=== PATIENT | male | born 1975 | race Two or more races ===

== ENCOUNTER 2019-08-02 14:03 | Emergency (ER) | payer OTHER ==
[~2019-08-02] VITALS: Ht 154.9 cm; Wt 61.2 kg
[2019-08-02] MEDS ORDERED: SODIUM CHLORIDE 0.9% 1,000 ML IV ONE ×2 (14:05)
[2019-08-02 14:28] LABS: Basophils # (auto) 0.1 10 ^3/uL (0-0.2); Basophils % (auto) 1.2 % (0.0-2.0); Hematocrit 38.3 % (41.0-53.0); Hemoglobin 12.8 g/dL (13.5-17.5); Lymphocytes # (auto) 1.7 10 ^3/uL (0.4-5.4); Lymphocytes % (auto) 20.2 % (10.0-50.0); Mean Corpuscular Hemoglobin 27.9 pg (28.0-32.0); Mean Corpuscular Hgb Conc. 33.3 g/dL (32.0-36.0); Mean Corpuscular Volume 83.7 fL (80.0-100.0); Monocytes # (auto) 0.5 10 ^3/uL (0-1.3); Monocytes % (auto) 5.6 % (0.0-12.0); Nucleated Red Blood Cells % 0.1 %; Platelet Count (auto) 305 10^3/uL (140-450); Red Blood Cells 4.58 10^6/uL (4.5-5.90); Red Cell Distribution Width 13.9 % (11.8-14.3); White Blood Cell 8.2 10^3/uL (4.4-10.8)
[2019-08-02 14:46] LABS: Albumin 2.9 g/dL (3.4-5.0); Anion Gap 9 (5-15); Blood Urea Nitrogen 14 mg/dL (7-18); Calcium 8.8 mg/dL (8.5-10.1); Carbon Dioxide 26 mmol/L (21-32); Chloride 104 mmol/L (98-107); Glucose 195 mg/dL (74-106); Potassium 4.8 mmol/L (3.5-5.1); Sodium 139 mmol/L (136-145)
[2019-08-02 14:51] LABS: Alanine Aminotransferase 100 U/L (16-61); Alkaline Phosphatase 87 U/L (45-117); Aspartate Aminotransferase 62 U/L (15-37); BUN/Creatinine Ratio 13.3; Bilirubin, Total 0.2 mg/dL (0.2-1.0); GFR African American 98 mL/min; GFR Non-African American 81 mL/min; Total Protein 7.2 g/dL (6.4-8.2)
[2019-08-02] MEDS ORDERED: amLODIPine BESYLATE 5 MG TAB PO ONE (15:00)
[2019-08-02 15:51] VITALS: BP 164/96
== END 2019-08-02 16:04 | disposition home or self-care (01) ==
LOC: EEVIPCON 14:03 → ER 14:03
DX: E11.65 Type 2 diabetes mellitus with hyperglycemia (principal); E44.0 Moderate protein-calorie malnutrition; I10 Essential (primary) hypertension
CPT/HCPCS: 36415; 70450; 71045; 80053; 84484; 85025; 96360; 99285; J7030

== ENCOUNTER 2020-05-23 15:52 | Emergency (ER) | payer OTHER ==
[~2020-05-23] VITALS: Ht 157.5 cm; Wt 70.3 kg
[2020-05-23 17:37] LABS: Basophils # (auto) 0.1 10 ^3/uL (0-0.2); Basophils % (auto) 0.9 % (0.0-2.0); Eosinophils # (auto) 0.7 10 ^3/uL (0-0.8); Hematocrit 25.8 % (41.0-53.0); Hemoglobin 9.1 g/dL (13.5-17.5); Lymphocytes # (auto) 0.9 10 ^3/uL (0.4-5.4); Lymphocytes % (auto) 7.9 % (10.0-50.0); Mean Corpuscular Hemoglobin 28.3 pg (28.0-32.0); Mean Corpuscular Hgb Conc. 35.3 g/dL (32.0-36.0); Mean Corpuscular Volume 80.2 fL (80.0-100.0); Monocytes # (auto) 0.8 10 ^3/uL (0-1.3); Monocytes % (auto) 7.3 % (0.0-12.0); Neutrophils # (auto) 8.6 10 ^3/uL (1.6-8.6); Neutrophils % (auto) 77.9 % (37.0-80.0); Platelet Count (auto) 372 10^3/uL (140-450); Red Blood Cells 3.22 10^6/uL (4.5-5.90); Red Cell Distribution Width 13.3 % (11.8-14.3)
[2020-05-23 18:03] LABS: Albumin 2.5 g/dL (3.4-5.0); Calcium 8.1 mg/dL (8.5-10.1); Potassium 4.2 mmol/L (3.5-5.1)
[2020-05-23 18:07] LABS: BUN/Creatinine Ratio 22.3; Bilirubin, Total 0.3 mg/dL (0.2-1.0); Total Protein 6.1 g/dL (6.4-8.2)
[2020-05-23 22:37] VITALS: BP 158/89
== END 2020-05-23 23:05 ==
LOC: ER 15:52 → EEVIPCON 15:52 → ER 23:05
DX: R51.9 Headache, unspecified (principal); H57.11 Ocular pain, right eye; M54.2 Cervicalgia; E11.9 Type 2 diabetes mellitus without complications; I10 Essential (primary) hypertension
CPT/HCPCS: 36415; 70450; 80053; 85025

== ENCOUNTER 2020-05-26 19:20 | Inpatient (IN) | payer OTHER ==
[~2020-05-26] VITALS: Ht 157.5 cm; Wt 82.0 kg
[2020-05-26 21:59] LABS: Basophils # (auto) 0.1 10 ^3/uL (0-0.2); Basophils % (auto) 0.7 % (0.0-2.0); Eosinophils # (auto) 0.5 10 ^3/uL (0-0.8); Eosinophils % (auto) 5.3 % (0.0-7.0); Hematocrit 29.5 % (41.0-53.0); Hemoglobin 10.4 g/dL (13.5-17.5); Lymphocytes # (auto) 0.8 10 ^3/uL (0.4-5.4); Lymphocytes % (auto) 7.8 % (10.0-50.0); Mean Corpuscular Hemoglobin 28.4 pg (28.0-32.0); Mean Corpuscular Hgb Conc. 35.3 g/dL (32.0-36.0); Mean Corpuscular Volume 80.5 fL (80.0-100.0); Monocytes # (auto) 0.5 10 ^3/uL (0-1.3); Monocytes % (auto) 5.6 % (0.0-12.0); Neutrophils # (auto) 7.9 10 ^3/uL (1.6-8.6); Neutrophils % (auto) 80.6 % (37.0-80.0); Platelet Count (auto) 384 10^3/uL (140-450); Red Blood Cells 3.66 10^6/uL (4.5-5.90); Red Cell Distribution Width 13.5 % (11.8-14.3); White Blood Cell 9.8 10^3/uL (4.4-10.8)
[2020-05-26 22:19] LABS: Albumin 2.5 g/dL (3.4-5.0); Anion Gap 11 (5-15); Blood Urea Nitrogen 54 mg/dL (7-18); Calcium 8.3 mg/dL (8.5-10.1); Carbon Dioxide 19 mmol/L (21-32); Chloride 93 mmol/L (98-107); Glucose 112 mg/dL (74-106); Lipase 178 U/L (73-393); Magnesium 2.1 mg/dL (1.6-2.6); Potassium 4.8 mmol/L (3.5-5.1); Sodium 123 mmol/L (136-145)
[2020-05-26 22:58] LABS: Alanine Aminotransferase 34 U/L (16-61); Alkaline Phosphatase 107 U/L (45-117); Aspartate Aminotransferase 38 U/L (15-37); Bilirubin, Total 0.2 mg/dL (0.2-1.0); GFR African American 18 mL/min; GFR Non-African American 15 mL/min; Total Protein 6.6 g/dL (6.4-8.2)
[2020-05-26] MEDS ORDERED: HYDROcodone-ACET 10/325MG TAB PO PRN (23:00)
[2020-05-26] MEDS ORDERED: DEXTROSE (50%) 50ML SYRG IV PRN (23:00)
[2020-05-26] MEDS: cefTRIAXone 1GM/50ML D5W 50 ML IV SCH (23:00)
[2020-05-26] MEDS: D5W/SOD CHL 0.45% 1,000 ML IV SCH (23:00)
[2020-05-26] MEDS ORDERED: AZITHROMYCIN 500MG/ 250ML 250 ML IV ONE (23:00)
[2020-05-26 23:17] LABS: INR 0.91 (0.9-1.15); Partial Thromboplastin Time 31.5 sec (23.0-31.2)
[2020-05-26] MEDS: AZITHROMYCIN IV SCH (23:30)
[2020-05-26] MEDS ORDERED: AZITHROMYCIN 500MG/ 250ML 250 ML IV SCH (23:30)
[2020-05-26] MEDS: SODIUM CHL 0.9% IV SCH (23:30)
[2020-05-27] MEDS: ACCU-CHEK COMFORT CURVE STRIP VI SCH ×7 (00:26→23:35)
[2020-05-27] MEDS: InsuLIN REG 1unit/0.01ml Soln (100units/ml) SC SCH ×7 (03:31→23:35)
[2020-05-27] MEDS ORDERED: AZITHROMYCIN 500 MG/250 ML IV ONE (03:43)
[2020-05-27] MEDS ORDERED: AZITHROMYCIN 500MG/ 250ML 250 ML IV ONE (03:49)
[2020-05-27 04:26] VITALS: BP 151/76
[2020-05-27 05:15] VITALS: BP 151/76
[2020-05-27] MEDS: D5W/SOD CHL 0.45% 1,000 ML IV SCH ×3 (05:44→18:32)
[2020-05-27] MEDS ORDERED: LISI40TA11 PO (08:15)
[2020-05-27] MEDS ORDERED: ATOR20TA50 PO (08:15)
[2020-05-27] MEDS ORDERED: METF-370 PO (08:15)
[2020-05-27 08:57] VITALS: BP 155/83
[2020-05-27] MEDS: cefTRIAXone 1GM/50ML D5W 50 ML IV SCH (10:29)
[2020-05-27] MEDS: ENOXAPARIN SOD 30 MG/0.3 ML SYRINGE SC SCH (10:29)
[2020-05-27 12:39] VITALS: BP 155/85
[2020-05-27] MEDS: cloNIDine HCL 0.1 MG TAB PO PRN (15:32)
[2020-05-27 16:00] VITALS: BP 164/91
[2020-05-27 16:41] LABS: Urine Bacteria NONE SEEN /hpf (None Seen); Urine Blood 1+ /uL (Negative); Urine Specific Gravity 1.005 (1.001-1.035); Urine WBC <1 /hpf (0 - 3)
[2020-05-27] MEDS: AZITHROMYCIN IV SCH (21:54)
[2020-05-27] MEDS: SODIUM CHL 0.9% IV SCH (21:54)
[2020-05-27 22:00] VITALS: BP 145/86
[2020-05-28] MEDS: D5W/SOD CHL 0.45% 1,000 ML IV SCH ×3 (03:38→16:24)
[2020-05-28] MEDS: ACCU-CHEK COMFORT CURVE STRIP VI SCH ×6 (04:00→23:39)
[2020-05-28] MEDS: InsuLIN REG 1unit/0.01ml Soln (100units/ml) SC SCH ×6 (04:00→23:40)
[2020-05-28 05:00] VITALS: BP 171/95
[2020-05-28] MEDS: cloNIDine HCL 0.1 MG TAB PO PRN (05:17)
[2020-05-28 07:44] LABS: Albumin 2.1 g/dL (3.4-5.0); Calcium 7.9 mg/dL (8.5-10.1); Potassium 4.9 mmol/L (3.5-5.1)
[2020-05-28 07:49] LABS: BUN/Creatinine Ratio 11.7; Bilirubin, Total 0.2 mg/dL (0.2-1.0); Total Protein 5.5 g/dL (6.4-8.2)
[2020-05-28 09:00] VITALS: BP 114/74
[2020-05-28] MEDS: ENOXAPARIN SOD 30 MG/0.3 ML SYRINGE SC SCH (09:45)
[2020-05-28] MEDS: cefTRIAXone 1GM/50ML D5W 50 ML IV SCH (09:45)
[2020-05-28] MEDS: LOSARTAN POTASSIUM 50 MG TAB PO SCH (09:46)
[2020-05-28 13:00] VITALS: BP 149/88
[2020-05-28 22:00] VITALS: BP 146/75
[2020-05-28] MEDS: SODIUM CHL 0.9% IV SCH (22:02)
[2020-05-28] MEDS: AZITHROMYCIN IV SCH (22:02)
[2020-05-29] MEDS: InsuLIN REG 1unit/0.01ml Soln (100units/ml) SC SCH ×4 (04:00→16:00)
[2020-05-29] MEDS: ACCU-CHEK COMFORT CURVE STRIP VI SCH ×4 (04:02→16:29)
[2020-05-29 05:30] VITALS: BP 149/78
[2020-05-29 08:00] VITALS: BP 149/78
[2020-05-29] MEDS: ENOXAPARIN SOD 30 MG/0.3 ML SYRINGE SC SCH (10:04)
[2020-05-29] MEDS: cefTRIAXone 1GM/50ML D5W 50 ML IV SCH (10:04)
[2020-05-29] MEDS: LOSARTAN POTASSIUM 50 MG TAB PO SCH (10:05)
[2020-05-29 12:00] VITALS: BP 152/85
[2020-05-29] MEDS ORDERED: LEVO-28 PO (14:48)
[2020-05-29 15:09] VITALS: BP 152/85
== END 2020-05-29 16:30 | DRG 637 ==
LOC: ER 19:20 → EEVIPCON 19:20 → EDBD 19:20 → OVERFLOW 23:20 → EAST 05-27 04:50 → WEST WING 05-27 14:17
PROVIDERS: ADMIT Internal Medicine; ATTEND Internal Medicine
DX: E11.649 Type 2 diabetes mellitus with hypoglycemia without coma (principal); G93.41 Metabolic encephalopathy; J18.9 Pneumonia, unspecified organism; E87.1 Hypo-osmolality and hyponatremia; I10 Essential (primary) hypertension; E78.5 Hyperlipidemia, unspecified; Z83.3 Family history of diabetes mellitus; Z87.891 Personal history of nicotine dependence; Z20.822 Contact with and (suspected) exposure to COVID-19; N19 Unspecified kidney failure
CPT/HCPCS: 36415; 71045; 80053; 81001; 82962; 83690; 83735; 84484; 85025; 85610; 85730; 87040; 87070; 87077; 87081; 87186; 87205; 87426; 93005; G0378; J0696; J1815

== ENCOUNTER 2020-07-07 11:25 | Inpatient (IN) | payer OTHER ==
[~2020-07-07] VITALS: Ht 167.6 cm; Wt 57.0 kg
[~2020-07-07 11:25] MED LIST: ATOR20TA50 PO; LEVO-28 PO; LISI40TA11 PO
[2020-07-07] MEDS ORDERED: ZINC SULFATE 220mg CAP or TAB PO ONE (11:30)
[2020-07-07] MEDS ORDERED: AZITHROMYCIN 500MG/ 250ML 250 ML IV ONE (11:30)
[2020-07-07] MEDS ORDERED: CHOLECALCIFEROL (VITD3) 2,000 UNIT CAP/TAB PO ONE (11:30)
[2020-07-07] MEDS ORDERED: methylPREDNISolone SOD SUCC 125 MG/2 ML VL IV ONE (11:30)
[2020-07-07] MEDS ORDERED: ASCORBIC ACID 500 MG TAB PO ONE (11:30)
[2020-07-07 12:07] LABS: Basophils # (auto) 0.1 10 ^3/uL (0-0.2); Basophils % (auto) 0.9 % (0.0-2.0); Eosinophils # (auto) 0.6 10 ^3/uL (0-0.8); Eosinophils % (auto) 4.6 % (0.0-7.0); Hematocrit 26.7 % (41.0-53.0); Hemoglobin 9.3 g/dL (13.5-17.5); Lymphocytes # (auto) 0.7 10 ^3/uL (0.4-5.4); Lymphocytes % (auto) 5.1 % (10.0-50.0); Mean Corpuscular Hemoglobin 28.2 pg (28.0-32.0); Mean Corpuscular Hgb Conc. 34.8 g/dL (32.0-36.0); Monocytes % (auto) 7.7 % (0.0-12.0); Neutrophils # (auto) 10.7 10 ^3/uL (1.6-8.6); Neutrophils % (auto) 81.7 % (37.0-80.0); Red Cell Distribution Width 13.6 % (11.8-14.3); White Blood Cell 13.1 10^3/uL (4.4-10.8)
[2020-07-07 12:33] LABS: Anion Gap 7 (5-15); Blood Urea Nitrogen 32 mg/dL (7-18); Calcium 8.6 mg/dL (8.5-10.1); Carbon Dioxide 21 mmol/L (21-32); Chloride 95 mmol/L (98-107); Glucose 137 mg/dL (74-106); Potassium 5.1 mmol/L (3.5-5.1); Sodium 123 mmol/L (136-145)
[2020-07-07 12:47] LABS: Alanine Aminotransferase 44 U/L (16-61); Alkaline Phosphatase 119 U/L (45-117); Aspartate Aminotransferase 37 U/L (15-37); Bilirubin, Total 0.3 mg/dL (0.2-1.0); GFR African American 78 mL/min; GFR Non-African American 64 mL/min; Total Protein 6.5 g/dL (6.4-8.2)
[2020-07-07] MEDS ORDERED: ACETAMINOPHEN 325 MG TAB PO PRN (13:45)
[2020-07-07] MEDS ORDERED: HYDROcodone-ACET 10/325MG TAB PO PRN (13:45)
[2020-07-07] MEDS ORDERED: MORPHINE SULFATE INJECTION 2 MG/ML SYRG IV PRN (13:45)
[2020-07-07] MEDS ORDERED: NITROGLYCERIN 0.4 MG SL TAB SL PRN (13:45)
[2020-07-07] MEDS: SOD CHL 0.45% 1,000 ML IV SCH ×2 (14:18→23:24)
[2020-07-07 16:50] VITALS: BP 152/71
[2020-07-07] MEDS: metFORMIN HYDROCHLORIDE 500 MG TAB PO SCH (18:08)
[2020-07-07 22:00] VITALS: BP 141/83
[2020-07-07] MEDS: DexAMETHasone SOD PHOS 10MG/1ML VIAL INJ IV SCH (23:24)
[2020-07-07] MEDS: ATORVASTATIN 20 MG TAB PO SCH (23:25)
[2020-07-07] MEDS: glipiZIDE 5 MG TAB PO SCH (23:25)
[2020-07-07] MEDS: METOPROLOL TARTRATE 50 MG TAB PO SCH (23:26)
[2020-07-07] MEDS: ASCORBIC ACID 500 MG TAB PO SCH (23:26)
[2020-07-07] MEDS: ACCU-CHEK COMFORT CURVE STRIP VI SCH (23:27)
[2020-07-07] MEDS: LISINOPRIL 20 MG TAB PO SCH (23:27)
[2020-07-07] MEDS: InsuLIN REG 1unit/0.01ml Soln (100units/ml) SC SCH (23:29)
[2020-07-08 05:00] VITALS: BP 123/74
[2020-07-08] MEDS: metFORMIN HYDROCHLORIDE 500 MG TAB PO SCH ×2 (08:25→18:11)
[2020-07-08] MEDS: LEVOTHYROXINE SODIUM 25 MCG TAB PO SCH (08:25)
[2020-07-08 09:00] VITALS: BP 143/78
[2020-07-08] MEDS ORDERED: cefTRIAXone 1GM/50ML D5W 50 ML IV SCH (09:00)
[2020-07-08] MEDS: DexAMETHasone SOD PHOS 10MG/1ML VIAL INJ IV SCH ×2 (09:54→23:27)
[2020-07-08] MEDS: ZINC SULFATE 220mg CAP or TAB PO SCH (09:55)
[2020-07-08] MEDS: ASPirin 81 mg TAB PO SCH (09:55)
[2020-07-08] MEDS: METOPROLOL TARTRATE 50 MG TAB PO SCH ×2 (09:56→23:29)
[2020-07-08] MEDS: CHOLECALCIFEROL (VITD3) 2,000 UNIT CAP/TAB PO SCH (09:57)
[2020-07-08] MEDS: amLODIPine BESYLATE 5 MG TAB PO SCH (09:57)
[2020-07-08] MEDS: ASCORBIC ACID 500 MG TAB PO SCH ×2 (09:57→23:29)
[2020-07-08] MEDS: LISINOPRIL 20 MG TAB PO SCH ×2 (09:58→23:30)
[2020-07-08] MEDS: ENOXAPARIN SOD 40 MG/0.4 ML SYRINGE SC SCH (09:58)
[2020-07-08] MEDS: ACCU-CHEK COMFORT CURVE STRIP VI SCH ×2 (09:58→23:30)
[2020-07-08] MEDS ORDERED: AZITHROMYCIN 500MG/ 250ML 250 ML IV SCH (10:00)
[2020-07-08] MEDS: InsuLIN REG 1unit/0.01ml Soln (100units/ml) SC SCH ×2 (10:14→23:31)
[2020-07-08] MEDS: glipiZIDE 5 MG TAB PO SCH ×2 (10:14→23:27)
[2020-07-08] MEDS ORDERED: VANCOMYCIN PER PHARMACY 0 MG IV SCH (12:15)
[2020-07-08] MEDS ORDERED: VANCOMYCIN 1GM/250ML 250 ML IV ONE (12:38)
[2020-07-08 13:00] VITALS: BP 130/80
[2020-07-08 13:11] VITALS: BP 130/80
[2020-07-08 13:28] LABS: Basophils # (auto) 0 10 ^3/uL (0-0.2); Basophils % (auto) 0.1 % (0.0-2.0); Eosinophils # (auto) 0 10 ^3/uL (0-0.8); Hematocrit 23.9 % (41.0-53.0); Monocytes # (auto) 0.7 10 ^3/uL (0-1.3)
[2020-07-08 13:29] LABS: Hemoglobin 8.2 g/dL (13.5-17.5); Lymphocytes # (auto) 0.5 10 ^3/uL (0.4-5.4); Lymphocytes % (auto) 2.6 % (10.0-50.0); Mean Corpuscular Hgb Conc. 34.3 g/dL (32.0-36.0); Mean Corpuscular Volume 81.7 fL (80.0-100.0); Neutrophils # (auto) 17.4 10 ^3/uL (1.6-8.6); Neutrophils % (auto) 93.3 % (37.0-80.0); Red Blood Cells 2.92 10^6/uL (4.5-5.90); White Blood Cell 18.6 10^3/uL (4.4-10.8)
[2020-07-08 13:44] LABS: BUN/Creatinine Ratio 30.8; Calcium 8.5 mg/dL (8.5-10.1); Potassium 4.8 mmol/L (3.5-5.1)
[2020-07-08] MEDS: PIPERACILLIN-TAZOB 3.375GM 100 ML IV SCH ×2 (14:00→22:26)
[2020-07-08 17:00] VITALS: BP 129/73
[2020-07-08] MEDS: FUROSEMIDE 20 MG/2 ML VIAL IV SCH (18:12)
[2020-07-08 22:00] VITALS: BP 136/74
[2020-07-08] MEDS: POTASSIUM CHL 10 Meq TABLET PO SCH (23:28)
[2020-07-08] MEDS: ATORVASTATIN 20 MG TAB PO SCH (23:28)
[2020-07-09] VITALS (47 sets, daily range): BP systolic 87–153; BP diastolic 51–86
[2020-07-09] MEDS ORDERED: VANCOMYCIN 1GM/250ML 250 ML IV SCH (01:00)
[2020-07-09] MEDS: FUROSEMIDE 20 MG/2 ML VIAL IV SCH (05:54)
[2020-07-09] MEDS: PIPERACILLIN-TAZOB 3.375GM 100 ML IV SCH ×3 (05:54→21:48)
[2020-07-09 06:21] LABS: BUN/Creatinine Ratio 35.8; Calcium 8.7 mg/dL (8.5-10.1)
[2020-07-09] MEDS: metFORMIN HYDROCHLORIDE 500 MG TAB PO SCH ×2 (08:15→18:00)
[2020-07-09] MEDS: LEVOTHYROXINE SODIUM 25 MCG TAB PO SCH (08:15)
[2020-07-09] MEDS: ACCU-CHEK COMFORT CURVE STRIP VI SCH ×2 (10:00→21:49)
[2020-07-09] MEDS: InsuLIN REG 1unit/0.01ml Soln (100units/ml) SC SCH ×2 (10:00→21:50)
[2020-07-09] MEDS: ZINC SULFATE 220mg CAP or TAB PO SCH (10:38)
[2020-07-09] MEDS: POTASSIUM CHL 10 Meq TABLET PO SCH (10:38)
[2020-07-09] MEDS: ASPirin 81 mg TAB PO SCH (10:38)
[2020-07-09] MEDS: DexAMETHasone SOD PHOS 10MG/1ML VIAL INJ IV SCH ×2 (10:38→21:47)
[2020-07-09] MEDS: amLODIPine BESYLATE 5 MG TAB PO SCH (10:40)
[2020-07-09] MEDS: ASCORBIC ACID 500 MG TAB PO SCH ×2 (10:40→21:49)
[2020-07-09] MEDS: METOPROLOL TARTRATE 50 MG TAB PO SCH ×2 (10:40→21:48)
[2020-07-09] MEDS: CHOLECALCIFEROL (VITD3) 2,000 UNIT CAP/TAB PO SCH (10:41)
[2020-07-09] MEDS: LISINOPRIL 20 MG TAB PO SCH ×2 (10:41→21:49)
[2020-07-09] MEDS: ENOXAPARIN SOD 40 MG/0.4 ML SYRINGE SC SCH (10:42)
[2020-07-09] MEDS: glipiZIDE 5 MG TAB PO SCH ×2 (10:51→21:48)
[2020-07-09] MEDS ORDERED: FUROSEMIDE 20 MG/2 ML VIAL IV ONE (11:00)
[2020-07-09] MEDS ORDERED: SUCCINYLCHOLINE CHLORIDE 20 MG/ML 10ML VIAL IV ONE (12:46)
[2020-07-09] MEDS ORDERED: ROCURONIUM 10MG/ML 10ML VIAL IV ONE (12:46)
[2020-07-09] MEDS ORDERED: ETOMIDATE (2MG/ML) 20ML VIAL IV ONE (12:46)
[2020-07-09] MEDS ORDERED: fentaNYL Drip 2500mCg/250mlNS 250 ML IV ONE (12:51)
[2020-07-09] MEDS ORDERED: PROPOFOL 100 ML IV ONE (12:51)
[2020-07-09] MEDS ORDERED: MIDAZOLAM DRIP 50 mg/50mL 50 ML IV ONE (12:51)
[2020-07-09] MEDS: MIDAZOLAM DRIP 50 mg/50mL 50 ML IV SCH ×3 (13:15→20:38)
[2020-07-09] MEDS: PROPOFOL 100 ML IV SCH ×2 (13:15→20:38)
[2020-07-09] MEDS ORDERED: SODIUM CHLORIDE LOCK 0 ML ONE (14:12)
[2020-07-09] MEDS ORDERED: LIDOCAINE 2%HCL (LOCAL ANESTH.) INJ 20ML MDV ONE (14:12)
[2020-07-09] MEDS ORDERED: EPINEPHrine HCL 1 MG/1 ML AMP ONE (14:12)
[2020-07-09] MEDS ORDERED: MIDAZOLAM HCL 5 MG/ML-1ML VIAL ONE (14:13)
[2020-07-09] MEDS ORDERED: fentaNYL CITRATE 100 MCG/2 ML VL ONE (14:13)
[2020-07-09] MEDS ORDERED: LIDOCAINE HCL 2% TOP JELLY 5ML TOP ONE (14:13)
[2020-07-09 15:09] LABS: Basophils # (auto) 0 10 ^3/uL (0-0.2); Basophils % (auto) 0.1 % (0.0-2.0); Eosinophils # (auto) 0 10 ^3/uL (0-0.8); Hematocrit 20.7 % (41.0-53.0); Hemoglobin 7.3 g/dL (13.5-17.5); Lymphocytes # (auto) 0.2 10 ^3/uL (0.4-5.4); Lymphocytes % (auto) 1.9 % (10.0-50.0); Mean Corpuscular Hemoglobin 29.2 pg (28.0-32.0); Mean Corpuscular Hgb Conc. 35.5 g/dL (32.0-36.0); Mean Corpuscular Volume 82.2 fL (80.0-100.0); Monocytes # (auto) 0.4 10 ^3/uL (0-1.3); Neutrophils # (auto) 9.7 10 ^3/uL (1.6-8.6); Red Blood Cells 2.52 10^6/uL (4.5-5.90); Red Cell Distribution Width 13.9 % (11.8-14.3); White Blood Cell 10.3 10^3/uL (4.4-10.8)
[2020-07-09 15:20] LABS: INR 1.21 (0.9-1.15)
[2020-07-09 15:34] LABS: Albumin 2.1 g/dL (3.4-5.0); Calcium 7.8 mg/dL (8.5-10.1); Potassium 5.3 mmol/L (3.5-5.1)
[2020-07-09 15:38] LABS: BUN/Creatinine Ratio 37.5; Bilirubin, Total 0.4 mg/dL (0.2-1.0); Total Protein 4.8 g/dL (6.4-8.2)
[2020-07-09] MEDS: NOREPINEPHRINE 8 MG/250ML KIT 250 ML IV SCH (16:45)
[2020-07-09] MEDS: fentaNYL Drip 2500mCg/250mlNS 250 ML IV SCH (17:04)
[2020-07-09] MEDS: VANCOMYCIN 1GM/250ML 250 ML IV SCH (17:16)
[2020-07-09] MEDS ORDERED: FUROSEMIDE 20 MG/2 ML VIAL IV SCH (18:00)
[2020-07-09] MEDS: ALBUTEROL SULF 2.5 MG/0.5ML(0.5%) NEB SOLN NEB SCH (19:16)
[2020-07-09] MEDS: IPRATROPIUM BROM 0.5 MG/2.5ML INH SOL NEB SCH (19:16)
[2020-07-09] MEDS: ATORVASTATIN 20 MG TAB PO SCH (21:50)
[2020-07-10] VITALS (88 sets, daily range): BP systolic 81–137; BP diastolic 45–75
[2020-07-10] MEDS: MIDAZOLAM DRIP 50 mg/50mL 50 ML IV SCH ×3 (00:30→21:13)
[2020-07-10] MEDS: ALBUTEROL SULF 2.5 MG/0.5ML(0.5%) NEB SOLN NEB SCH ×4 (00:54→18:29)
[2020-07-10] MEDS: IPRATROPIUM BROM 0.5 MG/2.5ML INH SOL NEB SCH ×4 (00:54→18:29)
[2020-07-10 05:45] LABS: Basophils # (auto) 0 10 ^3/uL (0-0.2); Basophils % (auto) 0.1 % (0.0-2.0); Eosinophils # (auto) 0 10 ^3/uL (0-0.8); Hemoglobin 7.7 g/dL (13.5-17.5); Monocytes # (auto) 0.4 10 ^3/uL (0-1.3); Neutrophils # (auto) 9.7 10 ^3/uL (1.6-8.6); Neutrophils % (auto) 93.4 % (37.0-80.0); White Blood Cell 10.4 10^3/uL (4.4-10.8)
[2020-07-10 05:47] LABS: Hematocrit 21.7 % (41.0-53.0); Lymphocytes # (auto) 0.3 10 ^3/uL (0.4-5.4); Lymphocytes % (auto) 2.8 % (10.0-50.0); Mean Corpuscular Hemoglobin 29.3 pg (28.0-32.0); Mean Corpuscular Hgb Conc. 35.5 g/dL (32.0-36.0); Mean Corpuscular Volume 82.6 fL (80.0-100.0); Monocytes % (auto) 3.7 % (0.0-12.0); Nucleated Red Blood Cells % 0.1 %; Red Blood Cells 2.63 10^6/uL (4.5-5.90); Red Cell Distribution Width 13.6 % (11.8-14.3)
[2020-07-10] MEDS: PIPERACILLIN-TAZOB 3.375GM 100 ML IV SCH ×3 (06:00→21:10)
[2020-07-10 06:10] LABS: Albumin 2.2 g/dL (3.4-5.0); Calcium 8.2 mg/dL (8.5-10.1)
[2020-07-10 06:14] LABS: BUN/Creatinine Ratio 33.7; Bilirubin, Total 0.3 mg/dL (0.2-1.0); Total Protein 5.5 g/dL (6.4-8.2)
[2020-07-10 06:17] LABS: Potassium 5.6 mmol/L (3.5-5.1)
[2020-07-10] MEDS ORDERED: SODIUM ZIRCONIUM CYCL 10 GM PAK PO ONE (07:00)
[2020-07-10] MEDS: PROPOFOL 100 ML IV SCH ×2 (07:13→16:41)
[2020-07-10] MEDS: ENOXAPARIN SOD 40 MG/0.4 ML SYRINGE SC SCH (10:00)
[2020-07-10] MEDS: LISINOPRIL 20 MG TAB PO SCH (10:00)
[2020-07-10] MEDS: amLODIPine BESYLATE 5 MG TAB PO SCH (10:15)
[2020-07-10] MEDS: ACCU-CHEK COMFORT CURVE STRIP VI SCH ×2 (10:15→21:19)
[2020-07-10] MEDS: METOPROLOL TARTRATE 50 MG TAB PO SCH (10:15)
[2020-07-10] MEDS: ZINC SULFATE 220mg CAP or TAB PO SCH (10:34)
[2020-07-10] MEDS: ASPirin 81 mg TAB PO SCH (10:34)
[2020-07-10] MEDS: DexAMETHasone SOD PHOS 10MG/1ML VIAL INJ IV SCH ×2 (10:34→21:10)
[2020-07-10] MEDS: CHOLECALCIFEROL (VITD3) 1,000UNIT=25mCg TAB PO SCH (10:34)
[2020-07-10] MEDS: ASCORBIC ACID 500 MG TAB PO SCH ×2 (10:34→21:12)
[2020-07-10] MEDS: VANCOMYCIN 1GM/250ML 250 ML IV SCH (10:36)
[2020-07-10] MEDS: metFORMIN HYDROCHLORIDE 500 MG TAB PO SCH (10:49)
[2020-07-10] MEDS: LEVOTHYROXINE SODIUM 25 MCG TAB PO SCH (10:50)
[2020-07-10] MEDS: glipiZIDE 5 MG TAB PO SCH (10:50)
[2020-07-10] MEDS: InsuLIN REG 1unit/0.01ml Soln (100units/ml) SC SCH ×2 (10:51→21:19)
[2020-07-10] MEDS: fentaNYL Drip 2500mCg/250mlNS 250 ML IV SCH (16:38)
[2020-07-10] MEDS: NOREPINEPHRINE 8 MG/250ML KIT 250 ML IV SCH ×2 (16:40→20:04)
[2020-07-10] MEDS: FUROSEMIDE 40 MG/4 ML VIAL IV SCH (20:34)
[2020-07-10] MEDS: ATORVASTATIN 20 MG TAB PO SCH (21:12)
[2020-07-10] MEDS ORDERED: SODIUM ZIRCONIUM CYCL 10 GM PAK GT ONE ×2 (21:15→23:15)
[2020-07-10] MEDS: SODIUM CHLORIDE 0.9% 1,000 ML IV SCH (21:52)
[2020-07-11] VITALS (105 sets, daily range): BP systolic 104–147; BP diastolic 48–77
[2020-07-11] MEDS: ALBUTEROL SULF 2.5 MG/0.5ML(0.5%) NEB SOLN NEB SCH ×5 (00:12→22:43)
[2020-07-11] MEDS: IPRATROPIUM BROM 0.5 MG/2.5ML INH SOL NEB SCH ×4 (00:12→22:43)
[2020-07-11] MEDS: MIDAZOLAM DRIP 50 mg/50mL 50 ML IV SCH (02:48)
[2020-07-11] MEDS: FUROSEMIDE 40 MG/4 ML VIAL IV SCH ×2 (05:37→18:27)
[2020-07-11] MEDS: PIPERACILLIN-TAZOB 3.375GM 100 ML IV SCH (05:44)
[2020-07-11] MEDS: SODIUM CHLORIDE 0.9% 1,000 ML IV SCH ×2 (06:13→16:30)
[2020-07-11 06:38] LABS: Basophils # (auto) 0 10 ^3/uL (0-0.2); Eosinophils # (auto) 0 10 ^3/uL (0-0.8); Hemoglobin 7.8 g/dL (13.5-17.5); Lymphocytes # (auto) 0.2 10 ^3/uL (0.4-5.4); Lymphocytes % (auto) 1.5 % (10.0-50.0); Monocytes # (auto) 0.4 10 ^3/uL (0-1.3); Neutrophils # (auto) 10.1 10 ^3/uL (1.6-8.6); White Blood Cell 10.7 10^3/uL (4.4-10.8)
[2020-07-11 06:41] LABS: Basophils % (auto) 0.1 % (0.0-2.0); Hematocrit 21.7 % (41.0-53.0); Mean Corpuscular Hemoglobin 29.8 pg (28.0-32.0); Mean Corpuscular Hgb Conc. 35.8 g/dL (32.0-36.0); Mean Corpuscular Volume 83.3 fL (80.0-100.0); Monocytes % (auto) 4.1 % (0.0-12.0); Neutrophils % (auto) 94.3 % (37.0-80.0); Nucleated Red Blood Cells % 0.1 %; Red Blood Cells 2.61 10^6/uL (4.5-5.90); Red Cell Distribution Width 13.7 % (11.8-14.3)
[2020-07-11 06:56] LABS: Albumin 2.3 g/dL (3.4-5.0); Calcium 8.5 mg/dL (8.5-10.1); Potassium 4.9 mmol/L (3.5-5.1)
[2020-07-11 06:59] LABS: BUN/Creatinine Ratio 29.9; Bilirubin, Total 0.3 mg/dL (0.2-1.0); Total Protein 5.9 g/dL (6.4-8.2)
[2020-07-11] MEDS ORDERED: POTASSIUM CHL 20MEQ/100ML 100 ML IV SCH (07:30)
[2020-07-11] MEDS ORDERED: DEXTROSE (50%) 50ML SYRG IV PRN (07:30)
[2020-07-11] MEDS ORDERED: POTASSIUM EFFERVESENT TAB 25 MEQ PO ONE (07:30)
[2020-07-11] MEDS ORDERED: SODIUM CHLORIDE 0.9% 1,000 ML IV SCH (07:30)
[2020-07-11] MEDS: InsuLIN REG 1unit/0.01ml Soln (100units/ml) SC SCH ×4 (08:42→22:06)
[2020-07-11] MEDS: LEVOTHYROXINE SODIUM 25 MCG TAB PO SCH (08:47)
[2020-07-11] MEDS: amLODIPine BESYLATE 5 MG TAB PO SCH (10:00)
[2020-07-11] MEDS: ACCU-CHEK COMFORT CURVE STRIP VI SCH ×4 (10:00→22:05)
[2020-07-11] MEDS: ASPirin 81 mg TAB PO SCH (10:17)
[2020-07-11] MEDS: ASCORBIC ACID 500 MG TAB PO SCH ×2 (10:17→22:05)
[2020-07-11] MEDS: DexAMETHasone SOD PHOS 10MG/1ML VIAL INJ IV SCH (10:17)
[2020-07-11] MEDS: CHOLECALCIFEROL (VITD3) 1,000UNIT=25mCg TAB PO SCH (10:18)
[2020-07-11] MEDS ORDERED: MEROPENEM 1GM IVPB 100 ML IV ONE (11:00)
[2020-07-11] MEDS ORDERED: ACCU-CHEK COMFORT CURVE STRIP VI SCH (11:30)
[2020-07-11] MEDS ORDERED: InsuLIN REG 1unit/0.01ml Soln (100units/ml) SC SCH (11:30)
[2020-07-11] MEDS: LINEZOLID 600MG/300ML 300 ML IV SCH (14:30)
[2020-07-11] MEDS: fentaNYL Drip 2500mCg/250mlNS 250 ML IV SCH (16:30)
[2020-07-11] MEDS: ATORVASTATIN 20 MG TAB PO SCH (22:04)
[2020-07-11] MEDS: MEROPENEM 1GM IVPB 100 ML IV SCH (22:04)
[2020-07-12] VITALS (106 sets, daily range): BP systolic 89–134; BP diastolic 47–68
[2020-07-12] MEDS: LINEZOLID 600MG/300ML 300 ML IV SCH ×2 (01:35→14:38)
[2020-07-12] MEDS: MIDAZOLAM DRIP 50 mg/50mL 50 ML IV SCH ×3 (02:26→18:43)
[2020-07-12] MEDS: SODIUM CHLORIDE 0.9% 1,000 ML IV SCH ×3 (05:13→18:34)
[2020-07-12] MEDS: FUROSEMIDE 40 MG/4 ML VIAL IV SCH ×4 (05:14→21:20)
[2020-07-12] MEDS: ACCU-CHEK COMFORT CURVE STRIP VI SCH ×4 (05:21→21:21)
[2020-07-12] MEDS: InsuLIN REG 1unit/0.01ml Soln (100units/ml) SC SCH ×4 (05:22→21:25)
[2020-07-12 05:52] LABS: Basophils # (auto) 0 10 ^3/uL (0-0.2); Eosinophils # (auto) 0 10 ^3/uL (0-0.8); Lymphocytes # (auto) 0.3 10 ^3/uL (0.4-5.4); Lymphocytes % (auto) 2.5 % (10.0-50.0); Nucleated Red Blood Cells % 0.2 %
[2020-07-12 05:54] LABS: Basophils % (auto) 0.1 % (0.0-2.0); Hematocrit 21.6 % (41.0-53.0); Hemoglobin 7.5 g/dL (13.5-17.5); Mean Corpuscular Hemoglobin 29.1 pg (28.0-32.0); Mean Corpuscular Hgb Conc. 34.9 g/dL (32.0-36.0); Mean Corpuscular Volume 83.4 fL (80.0-100.0); Monocytes # (auto) 0.9 10 ^3/uL (0-1.3); Monocytes % (auto) 8.1 % (0.0-12.0); Neutrophils # (auto) 10.3 10 ^3/uL (1.6-8.6); Neutrophils % (auto) 89.3 % (37.0-80.0); Red Blood Cells 2.59 10^6/uL (4.5-5.90); Red Cell Distribution Width 13.8 % (11.8-14.3); White Blood Cell 11.6 10^3/uL (4.4-10.8)
[2020-07-12 06:13] LABS: Calcium 8.4 mg/dL (8.5-10.1); Potassium 4.7 mmol/L (3.5-5.1)
[2020-07-12 06:17] LABS: Bilirubin, Total 0.4 mg/dL (0.2-1.0); Total Protein 5.4 g/dL (6.4-8.2)
[2020-07-12] MEDS: IPRATROPIUM BROM 0.5 MG/2.5ML INH SOL NEB SCH ×3 (07:09→18:19)
[2020-07-12] MEDS: ALBUTEROL SULF 2.5 MG/0.5ML(0.5%) NEB SOLN NEB SCH ×3 (07:09→18:19)
[2020-07-12] MEDS: LEVOTHYROXINE SODIUM 25 MCG TAB PO SCH (08:00)
[2020-07-12] MEDS: fentaNYL Drip 2500mCg/250mlNS 250 ML IV SCH ×2 (08:01→21:25)
[2020-07-12] MEDS: MEROPENEM 1GM IVPB 100 ML IV SCH ×2 (09:58→21:20)
[2020-07-12] MEDS: ASCORBIC ACID 500 MG TAB PO SCH ×2 (09:59→21:21)
[2020-07-12] MEDS: ASPirin 81 mg TAB PO SCH (09:59)
[2020-07-12] MEDS: CHOLECALCIFEROL (VITD3) 1,000UNIT=25mCg TAB PO SCH (09:59)
[2020-07-12] MEDS: Glucerna 1.2 Cal 1Liter BOTTLE GT SCH (10:37)
[2020-07-12] MEDS: PROPOFOL 100 ML IV SCH (13:15)
[2020-07-12] MEDS: NOREPINEPHRINE 8 MG/250ML KIT 250 ML IV SCH (16:45)
[2020-07-12] MEDS ORDERED: INSULIN NPH Isophane (HUMAN) 1unit/0.01ml Susp(100units/ml) SC SCH (18:00)
[2020-07-12] MEDS: ATORVASTATIN 20 MG TAB PO SCH (21:21)
[2020-07-13] VITALS (104 sets, daily range): BP systolic 89–175; BP diastolic 52–133
[2020-07-13] MEDS: IPRATROPIUM BROM 0.5 MG/2.5ML INH SOL NEB SCH ×4 (00:14→18:20)
[2020-07-13] MEDS: ALBUTEROL SULF 2.5 MG/0.5ML(0.5%) NEB SOLN NEB SCH ×4 (00:15→18:20)
[2020-07-13] MEDS: LINEZOLID 600MG/300ML 300 ML IV SCH ×2 (01:05→14:12)
[2020-07-13] MEDS: FUROSEMIDE 40 MG/4 ML VIAL IV SCH ×3 (05:33→22:07)
[2020-07-13] MEDS: InsuLIN REG 1unit/0.01ml Soln (100units/ml) SC SCH ×4 (05:34→21:43)
[2020-07-13] MEDS: ACCU-CHEK COMFORT CURVE STRIP VI SCH ×4 (05:35→21:43)
[2020-07-13 06:03] LABS: Basophils # (auto) 0.1 10 ^3/uL (0-0.2); Basophils % (auto) 0.8 % (0.0-2.0); Eosinophils # (auto) 0.3 10 ^3/uL (0-0.8); Eosinophils % (auto) 1.7 % (0.0-7.0); Hematocrit 24.9 % (41.0-53.0); Hemoglobin 8.6 g/dL (13.5-17.5); Lymphocytes # (auto) 1.3 10 ^3/uL (0.4-5.4); Lymphocytes % (auto) 7.5 % (10.0-50.0); Mean Corpuscular Hemoglobin 28.6 pg (28.0-32.0); Mean Corpuscular Hgb Conc. 34.5 g/dL (32.0-36.0); Mean Corpuscular Volume 82.9 fL (80.0-100.0); Monocytes # (auto) 2.1 10 ^3/uL (0-1.3); Monocytes % (auto) 12.2 % (0.0-12.0); Neutrophils % (auto) 77.8 % (37.0-80.0); Nucleated Red Blood Cells % 0.1 %; Red Cell Distribution Width 13.5 % (11.8-14.3); White Blood Cell 16.8 10^3/uL (4.4-10.8)
[2020-07-13 06:21] LABS: Potassium 5.1 mmol/L (3.5-5.1)
[2020-07-13 06:30] LABS: Albumin 2.3 g/dL (3.4-5.0); Bilirubin, Total 0.3 mg/dL (0.2-1.0); Calcium 8.8 mg/dL (8.5-10.1); Total Protein 6.1 g/dL (6.4-8.2)
[2020-07-13] MEDS ORDERED: SODIUM BICARBONATE 8.4 % INJ 50ML VIAL IV ONE (06:45)
[2020-07-13] MEDS ORDERED: INSULIN NPH Isophane (HUMAN) 1unit/0.01ml Susp(100units/ml) SC SCH ×2 (07:00→11:45)
[2020-07-13] MEDS: LEVOTHYROXINE SODIUM 25 MCG TAB PO SCH (08:13)
[2020-07-13] MEDS: SODIUM CHLORIDE 0.9% 1,000 ML IV SCH (08:30)
[2020-07-13] MEDS: ASPirin 81 mg TAB PO SCH (10:08)
[2020-07-13] MEDS: CHOLECALCIFEROL (VITD3) 1,000UNIT=25mCg TAB PO SCH (10:08)
[2020-07-13] MEDS: ALBUMIN 25% 100 ML IV SCH ×2 (10:08→16:50)
[2020-07-13] MEDS: ASCORBIC ACID 500 MG TAB PO SCH ×2 (10:08→22:08)
[2020-07-13] MEDS: MEROPENEM 1GM IVPB 100 ML IV SCH ×2 (10:08→22:08)
[2020-07-13] MEDS: INSULIN NPH Isophane (HUMAN) 1unit/0.01ml Susp(100units/ml) SC SCH ×2 (11:45→18:00)
[2020-07-13] MEDS: fentaNYL Drip 2500mCg/250mlNS 250 ML IV SCH (12:02)
[2020-07-13] MEDS: PROPOFOL 100 ML IV SCH (13:15)
[2020-07-13] MEDS: MIDAZOLAM DRIP 50 mg/50mL 50 ML IV SCH (14:14)
[2020-07-13] MEDS ORDERED: BUMETANIDE 2.5mg/10ml (0.25 mg/ml) INJ IV ONE (14:45)
[2020-07-13] MEDS: SODIUM BICARBONATE 50ML VIAL 75 ML in SOD CHL 0.45% 1,000 ML IV SCH (16:32)
[2020-07-13] MEDS: NOREPINEPHRINE 8 MG/250ML KIT 250 ML IV SCH (16:45)
[2020-07-13] MEDS ORDERED: BUMETANIDE INJECTION 10 ML ONE (16:49)
[2020-07-13 17:14] LABS: Urine Bacteria FEW /hpf (None Seen); Urine Blood 2+ /uL (Negative); Urine Hyaline Cast MOD /lpf (0 - 2); Urine Mucus FEW (None Seen); Urine Specific Gravity 1.015 (1.001-1.035); Urine WBC 6 /hpf (0 - 3)
[2020-07-13 18:14] LABS: Creatinine, Urine 174 mg/dL (30.0-125.0); Sodium Urine 30 mmol/L (40-220)
[2020-07-13] MEDS: ATORVASTATIN 20 MG TAB PO SCH (22:08)
[2020-07-13] MEDS: hydrALAZINE HCL 20 MG/ML VL IV PRN (22:32)
[2020-07-14] VITALS (108 sets, daily range): BP systolic 124–187; BP diastolic 60–107
[2020-07-14] MEDS: ALBUTEROL SULF 2.5 MG/0.5ML(0.5%) NEB SOLN NEB SCH ×4 (00:44→18:31)
[2020-07-14] MEDS: IPRATROPIUM BROM 0.5 MG/2.5ML INH SOL NEB SCH ×4 (00:44→18:31)
[2020-07-14] MEDS: ALBUMIN 25% 100 ML IV SCH (01:14)
[2020-07-14] MEDS: LINEZOLID 600MG/300ML 300 ML IV SCH ×2 (02:00→14:04)
[2020-07-14] MEDS: SODIUM BICARBONATE 50ML VIAL 75 ML in SOD CHL 0.45% 1,000 ML IV SCH (05:52)
[2020-07-14] MEDS: ACCU-CHEK COMFORT CURVE STRIP VI SCH ×4 (05:52→22:10)
[2020-07-14] MEDS: FUROSEMIDE 40 MG/4 ML VIAL IV SCH ×2 (05:52→17:40)
[2020-07-14 05:59] LABS: Basophils # (auto) 0 10 ^3/uL (0-0.2); Monocytes # (auto) 1.2 10 ^3/uL (0-1.3); Neutrophils # (auto) 6.4 10 ^3/uL (1.6-8.6); White Blood Cell 9.6 10^3/uL (4.4-10.8)
[2020-07-14 06:01] LABS: Basophils % (auto) 0.2 % (0.0-2.0); Eosinophils # (auto) 1.1 10 ^3/uL (0-0.8); Eosinophils % (auto) 11.1 % (0.0-7.0); Lymphocytes # (auto) 0.9 10 ^3/uL (0.4-5.4); Lymphocytes % (auto) 9.5 % (10.0-50.0); Mean Corpuscular Hemoglobin 28.7 pg (28.0-32.0); Mean Corpuscular Hgb Conc. 35.5 g/dL (32.0-36.0); Mean Corpuscular Volume 81.1 fL (80.0-100.0); Monocytes % (auto) 12.6 % (0.0-12.0); Neutrophils % (auto) 66.6 % (37.0-80.0); Red Blood Cells 2.46 10^6/uL (4.5-5.90); Red Cell Distribution Width 13.6 % (11.8-14.3)
[2020-07-14] MEDS: InsuLIN REG 1unit/0.01ml Soln (100units/ml) SC SCH ×4 (06:01→22:00)
[2020-07-14 06:03] LABS: Hemoglobin 7.1 g/dL (13.5-17.5)
[2020-07-14] MEDS: MIDAZOLAM DRIP 50 mg/50mL 50 ML IV SCH ×3 (06:05→20:59)
[2020-07-14 06:27] LABS: Albumin 2.6 g/dL (3.4-5.0); Calcium 8.6 mg/dL (8.5-10.1); Potassium 4.5 mmol/L (3.5-5.1)
[2020-07-14 06:31] LABS: BUN/Creatinine Ratio 28.6; Bilirubin, Total 0.4 mg/dL (0.2-1.0); Total Protein 5.2 g/dL (6.4-8.2)
[2020-07-14] MEDS: INSULIN NPH Isophane (HUMAN) 1unit/0.01ml Susp(100units/ml) SC SCH ×2 (06:39→17:57)
[2020-07-14] MEDS: hydrALAZINE HCL 20 MG/ML VL IV PRN (08:35)
[2020-07-14] MEDS: LEVOTHYROXINE SODIUM 25 MCG TAB PO SCH (08:35)
[2020-07-14] MEDS ORDERED: SODIUM CHLORIDE 0.9% 1,000 ML IV SCH (09:15)
[2020-07-14] MEDS: CHOLECALCIFEROL (VITD3) 1,000UNIT=25mCg TAB PO SCH (10:34)
[2020-07-14] MEDS: ASPirin 81 mg TAB PO SCH (10:34)
[2020-07-14] MEDS: ASCORBIC ACID 500 MG TAB PO SCH ×2 (10:34→22:10)
[2020-07-14] MEDS: MEROPENEM 1GM IVPB 100 ML IV SCH ×2 (10:35→22:10)
[2020-07-14] MEDS: SODIUM CHLORIDE 0.9% 1,000 ML IV SCH (10:35)
[2020-07-14 10:44] LABS: Hematocrit 23.5 % (41.0-53.0)
[2020-07-14 10:55] LABS: Hemoglobin 8.2 g/dL (13.5-17.5)
[2020-07-14] MEDS: PROPOFOL 100 ML IV SCH (13:15)
[2020-07-14] MEDS: fentaNYL Drip 2500mCg/250mlNS 250 ML IV SCH (14:53)
[2020-07-14] MEDS: NOREPINEPHRINE 8 MG/250ML KIT 250 ML IV SCH (14:55)
[2020-07-14] MEDS: LABETALOL HCL 5 MG/ML 4ML SYRINGE IV PRN (16:55)
[2020-07-14] MEDS: POTASSIUM CHL 10 Meq TABLET PO SCH (22:10)
[2020-07-14] MEDS: ATORVASTATIN 20 MG TAB PO SCH (22:10)
[2020-07-15] VITALS (85 sets, daily range): BP systolic 94–200; BP diastolic 53–104
[2020-07-15] MEDS: ALBUTEROL SULF 2.5 MG/0.5ML(0.5%) NEB SOLN NEB SCH ×4 (00:12→18:10)
[2020-07-15] MEDS: IPRATROPIUM BROM 0.5 MG/2.5ML INH SOL NEB SCH ×4 (00:12→18:10)
[2020-07-15] MEDS: SODIUM CHLORIDE 0.9% 1,000 ML IV SCH ×2 (01:55→16:55)
[2020-07-15] MEDS: LINEZOLID 600MG/300ML 300 ML IV SCH ×2 (02:00→13:49)
[2020-07-15] MEDS: hydrALAZINE HCL 20 MG/ML VL IV PRN ×2 (04:04→10:03)
[2020-07-15] MEDS: fentaNYL Drip 2500mCg/250mlNS 250 ML IV SCH ×2 (04:13→22:11)
[2020-07-15] MEDS: FUROSEMIDE 40 MG/4 ML VIAL IV SCH ×2 (05:56→16:54)
[2020-07-15] MEDS: ACCU-CHEK COMFORT CURVE STRIP VI SCH ×4 (05:56→22:00)
[2020-07-15] MEDS: InsuLIN REG 1unit/0.01ml Soln (100units/ml) SC SCH ×4 (06:34→22:00)
[2020-07-15] MEDS: INSULIN NPH Isophane (HUMAN) 1unit/0.01ml Susp(100units/ml) SC SCH ×2 (06:35→17:15)
[2020-07-15 08:08] LABS: Basophils # (auto) 0 10 ^3/uL (0-0.2); Basophils % (auto) 0.2 % (0.0-2.0); Hemoglobin 7.3 g/dL (13.5-17.5); Lymphocytes # (auto) 1.1 10 ^3/uL (0.4-5.4); Neutrophils # (auto) 6.4 10 ^3/uL (1.6-8.6)
[2020-07-15 08:11] LABS: Eosinophils % (auto) 10.1 % (0.0-7.0); Hematocrit 20.6 % (41.0-53.0); Lymphocytes % (auto) 11.3 % (10.0-50.0); Mean Corpuscular Hemoglobin 28.9 pg (28.0-32.0); Mean Corpuscular Hgb Conc. 35.4 g/dL (32.0-36.0); Mean Corpuscular Volume 81.7 fL (80.0-100.0); Neutrophils % (auto) 67.4 % (37.0-80.0); Red Blood Cells 2.52 10^6/uL (4.5-5.90); Red Cell Distribution Width 13.5 % (11.8-14.3); White Blood Cell 9.5 10^3/uL (4.4-10.8)
[2020-07-15 08:29] LABS: Potassium 4.3 mmol/L (3.5-5.1)
[2020-07-15 08:58] LABS: Albumin 2.2 g/dL (3.4-5.0); BUN/Creatinine Ratio 37.4; Bilirubin, Total 0.5 mg/dL (0.2-1.0); Calcium 8.7 mg/dL (8.5-10.1); Total Protein 4.8 g/dL (6.4-8.2)
[2020-07-15] MEDS: POTASSIUM CHL 10 Meq TABLET PO SCH (10:00)
[2020-07-15] MEDS ORDERED: ENOXAPARIN SOD 40 MG/0.4 ML SYRINGE SC SCH (10:00)
[2020-07-15] MEDS: ASPirin 81 mg TAB PO SCH (10:02)
[2020-07-15] MEDS: LEVOTHYROXINE SODIUM 25 MCG TAB PO SCH (10:02)
[2020-07-15] MEDS: ASCORBIC ACID 500 MG TAB PO SCH ×2 (10:02→22:09)
[2020-07-15] MEDS: CHOLECALCIFEROL (VITD3) 1,000UNIT=25mCg TAB PO SCH (10:02)
[2020-07-15] MEDS: MEROPENEM 1GM IVPB 100 ML IV SCH ×2 (10:17→22:09)
[2020-07-15] MEDS ORDERED: hydrALAZINE HCL 20 MG/ML VL IV ONE (11:00)
[2020-07-15] MEDS ORDERED: ENOXAPARIN SOD 40 MG/0.4 ML SYRINGE SC ONE (11:15)
[2020-07-15] MEDS: PROPOFOL 100 ML IV SCH ×2 (12:53→13:53)
[2020-07-15] MEDS: NOREPINEPHRINE 8 MG/250ML KIT 250 ML IV SCH (12:54)
[2020-07-15] MEDS: Glucerna 1.2 Cal 1Liter BOTTLE GT SCH (15:48)
[2020-07-15] MEDS: POTASSIUM EFFERVESENT TAB 25 MEQ GT SCH (22:09)
[2020-07-15] MEDS: ATORVASTATIN 20 MG TAB PO SCH (22:09)
[2020-07-16] VITALS (103 sets, daily range): BP systolic 110–218; BP diastolic 46–102
[2020-07-16] MEDS: ALBUTEROL SULF 2.5 MG/0.5ML(0.5%) NEB SOLN NEB SCH ×4 (00:03→18:14)
[2020-07-16] MEDS: IPRATROPIUM BROM 0.5 MG/2.5ML INH SOL NEB SCH ×4 (00:03→18:14)
[2020-07-16] MEDS: LINEZOLID 600MG/300ML 300 ML IV SCH ×2 (02:00→15:40)
[2020-07-16 05:37] LABS: Basophils # (auto) 0 10 ^3/uL (0-0.2); Basophils % (auto) 0.4 % (0.0-2.0); Eosinophils # (auto) 0.8 10 ^3/uL (0-0.8); Monocytes # (auto) 0.8 10 ^3/uL (0-1.3); Nucleated Red Blood Cells % 0.1 %; White Blood Cell 7.4 10^3/uL (4.4-10.8)
[2020-07-16 05:39] LABS: Eosinophils % (auto) 10.2 % (0.0-7.0); Hematocrit 19.9 % (41.0-53.0); Hemoglobin 7.2 g/dL (13.5-17.5); Lymphocytes % (auto) 12.9 % (10.0-50.0); Mean Corpuscular Hemoglobin 29.6 pg (28.0-32.0); Mean Corpuscular Hgb Conc. 36.3 g/dL (32.0-36.0); Mean Corpuscular Volume 81.6 fL (80.0-100.0); Monocytes % (auto) 10.5 % (0.0-12.0); Neutrophils # (auto) 4.9 10 ^3/uL (1.6-8.6); Red Blood Cells 2.44 10^6/uL (4.5-5.90); Red Cell Distribution Width 13.5 % (11.8-14.3)
[2020-07-16] MEDS: ACCU-CHEK COMFORT CURVE STRIP VI SCH ×4 (06:00→22:00)
[2020-07-16] MEDS: InsuLIN REG 1unit/0.01ml Soln (100units/ml) SC SCH ×4 (06:00→22:00)
[2020-07-16] MEDS: FUROSEMIDE 40 MG/4 ML VIAL IV SCH ×2 (06:00→17:44)
[2020-07-16 06:01] LABS: Albumin 2.1 g/dL (3.4-5.0); Calcium 8.6 mg/dL (8.5-10.1); Potassium 4.2 mmol/L (3.5-5.1)
[2020-07-16 06:05] LABS: Bilirubin, Total 0.4 mg/dL (0.2-1.0); Total Protein 5.3 g/dL (6.4-8.2)
[2020-07-16] MEDS: INSULIN NPH Isophane (HUMAN) 1unit/0.01ml Susp(100units/ml) SC SCH ×2 (07:00→17:39)
[2020-07-16] MEDS: hydrALAZINE HCL 20 MG/ML VL IV PRN (08:26)
[2020-07-16] MEDS: LEVOTHYROXINE SODIUM 25 MCG TAB PO SCH (09:31)
[2020-07-16] MEDS: ASPirin 81 mg TAB PO SCH (09:31)
[2020-07-16] MEDS: POTASSIUM EFFERVESENT TAB 25 MEQ GT SCH (09:31)
[2020-07-16] MEDS: ASCORBIC ACID 500 MG TAB PO SCH ×2 (09:31→23:15)
[2020-07-16] MEDS: MEROPENEM 1GM IVPB 100 ML IV SCH ×2 (09:31→23:14)
[2020-07-16] MEDS: ENOXAPARIN SOD 40 MG/0.4 ML SYRINGE SC SCH (09:32)
[2020-07-16] MEDS: CHOLECALCIFEROL (VITD3) 1,000UNIT=25mCg TAB PO SCH (09:32)
[2020-07-16] MEDS: SODIUM CHLORIDE 0.9% 1,000 ML IV SCH ×2 (11:15→15:40)
[2020-07-16] MEDS: MIDAZOLAM DRIP 50 mg/50mL 50 ML IV SCH (13:15)
[2020-07-16] MEDS: PROPOFOL 100 ML IV SCH ×4 (13:24→22:26)
[2020-07-16] MEDS: fentaNYL Drip 2500mCg/250mlNS 250 ML IV SCH (13:26)
[2020-07-16] MEDS: NOREPINEPHRINE 8 MG/250ML KIT 250 ML IV SCH (16:45)
[2020-07-16] MEDS: ATORVASTATIN 20 MG TAB PO SCH (23:14)
[2020-07-17] VITALS (101 sets, daily range): BP systolic 76–185; BP diastolic 41–96
[2020-07-17] MEDS: ALBUTEROL SULF 2.5 MG/0.5ML(0.5%) NEB SOLN NEB SCH ×4 (00:20→19:10)
[2020-07-17] MEDS: IPRATROPIUM BROM 0.5 MG/2.5ML INH SOL NEB SCH ×4 (00:20→19:10)
[2020-07-17] MEDS: fentaNYL Drip 2500mCg/250mlNS 250 ML IV SCH ×2 (01:43→14:10)
[2020-07-17] MEDS: PROPOFOL 100 ML IV SCH ×2 (03:04→10:20)
[2020-07-17] MEDS: LINEZOLID 600MG/300ML 300 ML IV SCH ×2 (03:04→13:56)
[2020-07-17] MEDS: InsuLIN REG 1unit/0.01ml Soln (100units/ml) SC SCH ×4 (06:00→22:00)
[2020-07-17 06:13] LABS: Eosinophils # (auto) 0.7 10 ^3/uL (0-0.8); Monocytes # (auto) 0.9 10 ^3/uL (0-1.3); Monocytes % (auto) 11.1 % (0.0-12.0); Neutrophils # (auto) 5.6 10 ^3/uL (1.6-8.6); Nucleated Red Blood Cells % 0.1 %
[2020-07-17 06:16] LABS: Basophils # (auto) 0 10 ^3/uL (0-0.2); Basophils % (auto) 0.5 % (0.0-2.0); Hematocrit 19.5 % (41.0-53.0); Hemoglobin 7.1 g/dL (13.5-17.5); Lymphocytes # (auto) 0.9 10 ^3/uL (0.4-5.4); Lymphocytes % (auto) 11.1 % (10.0-50.0); Mean Corpuscular Hemoglobin 29.8 pg (28.0-32.0); Mean Corpuscular Hgb Conc. 36.3 g/dL (32.0-36.0); Mean Corpuscular Volume 82.2 fL (80.0-100.0); Neutrophils % (auto) 68.3 % (37.0-80.0); Red Blood Cells 2.37 10^6/uL (4.5-5.90); Red Cell Distribution Width 13.5 % (11.8-14.3); White Blood Cell 8.2 10^3/uL (4.4-10.8)
[2020-07-17 06:36] LABS: Potassium 3.9 mmol/L (3.5-5.1)
[2020-07-17 06:44] LABS: BUN/Creatinine Ratio 38.8; Bilirubin, Total 0.3 mg/dL (0.2-1.0); Calcium 8.4 mg/dL (8.5-10.1); Total Protein 5.1 g/dL (6.4-8.2)
[2020-07-17] MEDS: INSULIN NPH Isophane (HUMAN) 1unit/0.01ml Susp(100units/ml) SC SCH ×2 (07:00→17:50)
[2020-07-17] MEDS: ACCU-CHEK COMFORT CURVE STRIP VI SCH ×4 (07:48→22:00)
[2020-07-17] MEDS: FUROSEMIDE 40 MG/4 ML VIAL IV SCH ×2 (07:48→18:12)
[2020-07-17] MEDS: LEVOTHYROXINE SODIUM 25 MCG TAB PO SCH (08:19)
[2020-07-17] MEDS: MEROPENEM 1GM IVPB 100 ML IV SCH ×2 (10:19→21:55)
[2020-07-17] MEDS: POTASSIUM EFFERVESENT TAB 25 MEQ GT SCH (10:19)
[2020-07-17] MEDS: ASCORBIC ACID 500 MG TAB PO SCH ×2 (10:20→21:55)
[2020-07-17] MEDS: ASPirin 81 mg TAB PO SCH (10:20)
[2020-07-17] MEDS: PANTOPRAZOLE 40 MG/10 ML VIAL INJ IV SCH (10:20)
[2020-07-17] MEDS: CHOLECALCIFEROL (VITD3) 1,000UNIT=25mCg TAB PO SCH (10:21)
[2020-07-17] MEDS: ENOXAPARIN SOD 40 MG/0.4 ML SYRINGE SC SCH (10:21)
[2020-07-17] MEDS: MIDAZOLAM DRIP 50 mg/50mL 50 ML IV SCH ×2 (13:15→21:56)
[2020-07-17] MEDS: Glucerna 1.2 Cal 1Liter BOTTLE GT SCH (13:51)
[2020-07-17] MEDS: NOREPINEPHRINE 8 MG/250ML KIT 250 ML IV SCH (16:00)
[2020-07-17] MEDS: ATORVASTATIN 20 MG TAB PO SCH (21:55)
[2020-07-17] MEDS: SODIUM CHLORIDE 0.9% 1,000 ML IV SCH (21:55)
[2020-07-18] VITALS (103 sets, daily range): BP systolic 88–201; BP diastolic 9–103
[2020-07-18] MEDS: IPRATROPIUM BROM 0.5 MG/2.5ML INH SOL NEB SCH ×4 (00:13→19:50)
[2020-07-18] MEDS: ALBUTEROL SULF 2.5 MG/0.5ML(0.5%) NEB SOLN NEB SCH ×4 (00:13→19:49)
[2020-07-18] MEDS: PROPOFOL 100 ML IV SCH ×2 (00:44→21:30)
[2020-07-18] MEDS: LINEZOLID 600MG/300ML 300 ML IV SCH ×2 (02:46→13:56)
[2020-07-18] MEDS: fentaNYL Drip 2500mCg/250mlNS 250 ML IV SCH (02:47)
[2020-07-18] MEDS: InsuLIN REG 1unit/0.01ml Soln (100units/ml) SC SCH ×4 (06:00→22:00)
[2020-07-18] MEDS: INSULIN NPH Isophane (HUMAN) 1unit/0.01ml Susp(100units/ml) SC SCH ×2 (07:00→17:43)
[2020-07-18 07:33] LABS: Basophils # (auto) 0.1 10 ^3/uL (0-0.2); Basophils % (auto) 0.7 % (0.0-2.0); Eosinophils # (auto) 0.9 10 ^3/uL (0-0.8); Eosinophils % (auto) 11.7 % (0.0-7.0); Hematocrit 20.7 % (41.0-53.0); Hemoglobin 7.1 g/dL (13.5-17.5); Lymphocytes # (auto) 1.1 10 ^3/uL (0.4-5.4); Lymphocytes % (auto) 14.5 % (10.0-50.0); Mean Corpuscular Hemoglobin 28.8 pg (28.0-32.0); Mean Corpuscular Hgb Conc. 34.4 g/dL (32.0-36.0); Mean Corpuscular Volume 83.6 fL (80.0-100.0); Monocytes # (auto) 0.8 10 ^3/uL (0-1.3); Monocytes % (auto) 10.7 % (0.0-12.0); Neutrophils # (auto) 4.7 10 ^3/uL (1.6-8.6); Neutrophils % (auto) 62.4 % (37.0-80.0); Red Blood Cells 2.48 10^6/uL (4.5-5.90); Red Cell Distribution Width 13.6 % (11.8-14.3); White Blood Cell 7.6 10^3/uL (4.4-10.8)
[2020-07-18 07:46] LABS: Calcium 8.3 mg/dL (8.5-10.1); Magnesium 2.2 mg/dL (1.6-2.6); Potassium 4.5 mmol/L (3.5-5.1)
[2020-07-18 07:50] LABS: BUN/Creatinine Ratio 32.8; Bilirubin, Total 0.3 mg/dL (0.2-1.0); Phosphorus 5.6 mg/dL (2.5-4.90); Total Protein 5.2 g/dL (6.4-8.2)
[2020-07-18] MEDS: FUROSEMIDE 40 MG/4 ML VIAL IV SCH ×2 (07:53→17:51)
[2020-07-18] MEDS: ACCU-CHEK COMFORT CURVE STRIP VI SCH ×4 (07:54→22:00)
[2020-07-18] MEDS: LEVOTHYROXINE SODIUM 25 MCG TAB PO SCH (08:47)
[2020-07-18] MEDS: POTASSIUM EFFERVESENT TAB 25 MEQ GT SCH (09:40)
[2020-07-18] MEDS: ASPirin 81 mg TAB PO SCH (09:42)
[2020-07-18] MEDS: MEROPENEM 1GM IVPB 100 ML IV SCH ×2 (09:42→22:38)
[2020-07-18] MEDS: ASCORBIC ACID 500 MG TAB PO SCH ×2 (09:42→22:38)
[2020-07-18] MEDS: PANTOPRAZOLE 40 MG/10 ML VIAL INJ IV SCH (09:42)
[2020-07-18] MEDS: ENOXAPARIN SOD 40 MG/0.4 ML SYRINGE SC SCH (09:43)
[2020-07-18] MEDS: CHOLECALCIFEROL (VITD3) 1,000UNIT=25mCg TAB PO SCH (09:43)
[2020-07-18] MEDS: MIDAZOLAM DRIP 50 mg/50mL 50 ML IV SCH ×2 (11:11→21:30)
[2020-07-18] MEDS: SODIUM CHLORIDE 0.9% 1,000 ML IV SCH ×2 (13:15→18:42)
[2020-07-18] MEDS: NOREPINEPHRINE 8 MG/250ML KIT 250 ML IV SCH (13:57)
[2020-07-18] MEDS: hydrALAZINE HCL 20 MG/ML VL IV PRN ×2 (14:04→20:07)
[2020-07-18] MEDS: LABETALOL HCL 5 MG/ML 4ML SYRINGE IV PRN ×3 (15:34→23:54)
[2020-07-18] MEDS: ATORVASTATIN 20 MG TAB PO SCH (22:38)
[2020-07-19] VITALS (97 sets, daily range): BP systolic 97–197; BP diastolic 49–97
[2020-07-19] MEDS: ALBUTEROL SULF 2.5 MG/0.5ML(0.5%) NEB SOLN NEB SCH ×5 (00:06→23:59)
[2020-07-19] MEDS: IPRATROPIUM BROM 0.5 MG/2.5ML INH SOL NEB SCH ×5 (00:06→23:59)
[2020-07-19] MEDS: LINEZOLID 600MG/300ML 300 ML IV SCH ×2 (02:00→13:53)
[2020-07-19] MEDS: fentaNYL Drip 2500mCg/250mlNS 250 ML IV SCH ×2 (05:40→07:15)
[2020-07-19] MEDS: PROPOFOL 100 ML IV SCH ×2 (05:41→07:15)
[2020-07-19] MEDS: SODIUM CHLORIDE 0.9% 1,000 ML IV SCH (05:41)
[2020-07-19 06:03] LABS: Eosinophils # (auto) 1.1 10 ^3/uL (0-0.8); Hemoglobin 7.3 g/dL (13.5-17.5); Lymphocytes # (auto) 1.1 10 ^3/uL (0.4-5.4); Monocytes # (auto) 0.8 10 ^3/uL (0-1.3); Neutrophils # (auto) 4.5 10 ^3/uL (1.6-8.6)
[2020-07-19 06:05] LABS: Basophils # (auto) 0.1 10 ^3/uL (0-0.2); Basophils % (auto) 0.9 % (0.0-2.0); Eosinophils % (auto) 14.2 % (0.0-7.0); Hematocrit 21.1 % (41.0-53.0); Lymphocytes % (auto) 14.7 % (10.0-50.0); Mean Corpuscular Hgb Conc. 34.5 g/dL (32.0-36.0); Mean Corpuscular Volume 83.9 fL (80.0-100.0); Monocytes % (auto) 10.2 % (0.0-12.0); Red Blood Cells 2.51 10^6/uL (4.5-5.90); Red Cell Distribution Width 13.5 % (11.8-14.3); White Blood Cell 7.5 10^3/uL (4.4-10.8)
[2020-07-19] MEDS: ACCU-CHEK COMFORT CURVE STRIP VI SCH ×4 (06:08→21:29)
[2020-07-19] MEDS: InsuLIN REG 1unit/0.01ml Soln (100units/ml) SC SCH ×4 (06:09→21:31)
[2020-07-19] MEDS: FUROSEMIDE 40 MG/4 ML VIAL IV SCH ×2 (06:11→18:18)
[2020-07-19 06:17] LABS: Potassium 4.5 mmol/L (3.5-5.1)
[2020-07-19 06:30] LABS: Albumin 2.2 g/dL (3.4-5.0); BUN/Creatinine Ratio 29.5; Bilirubin, Total 0.3 mg/dL (0.2-1.0); Calcium 8.4 mg/dL (8.5-10.1); Total Protein 5.5 g/dL (6.4-8.2)
[2020-07-19] MEDS: INSULIN NPH Isophane (HUMAN) 1unit/0.01ml Susp(100units/ml) SC SCH ×2 (07:00→17:44)
[2020-07-19] MEDS: LEVOTHYROXINE SODIUM 25 MCG TAB PO SCH (08:30)
[2020-07-19] MEDS: POTASSIUM EFFERVESENT TAB 25 MEQ GT SCH (08:31)
[2020-07-19] MEDS: MEROPENEM 1GM IVPB 100 ML IV SCH ×2 (09:32→21:23)
[2020-07-19] MEDS: PANTOPRAZOLE 40 MG/10 ML VIAL INJ IV SCH (09:32)
[2020-07-19] MEDS: ASPirin 81 mg TAB PO SCH (09:32)
[2020-07-19] MEDS: ASCORBIC ACID 500 MG TAB PO SCH ×2 (09:32→21:29)
[2020-07-19] MEDS: CHOLECALCIFEROL (VITD3) 1,000UNIT=25mCg TAB PO SCH (09:33)
[2020-07-19] MEDS: ENOXAPARIN SOD 40 MG/0.4 ML SYRINGE SC SCH (09:33)
[2020-07-19] MEDS: NOREPINEPHRINE 8 MG/250ML KIT 250 ML IV SCH (13:54)
[2020-07-19] MEDS: LABETALOL HCL 5 MG/ML 4ML SYRINGE IV PRN ×4 (14:18→22:27)
[2020-07-19] MEDS: hydrALAZINE HCL 20 MG/ML VL IV PRN ×2 (14:31→21:18)
[2020-07-19] MEDS ORDERED: EPINEPHrine HCL 0.5 ML NEB NEB PRN ×2 (16:00→16:30)
[2020-07-19] MEDS ORDERED: LISINOPRIL 20 MG TAB PO ONE (17:45)
[2020-07-19] MEDS ORDERED: EPINEPHrine HCL 0.5 ML NEB ONE (18:38)
[2020-07-19] MEDS: ATORVASTATIN 20 MG TAB PO SCH (21:29)
[2020-07-19] MEDS ORDERED: cloNIDine HCL 0.1 MG TAB ONE (23:25)
[2020-07-19] MEDS ORDERED: cloNIDine HCL 0.1 MG TAB PO ONE (23:30)
[2020-07-19] MEDS ORDERED: LABETALOL HCL 5 MG/ML 4ML SYRINGE IV ONE (23:30)
[2020-07-20] VITALS (85 sets, daily range): BP systolic 129–189; BP diastolic 55–91
[2020-07-20] MEDS: LABETALOL HCL 5 MG/ML 4ML SYRINGE IV PRN ×2 (00:53→09:44)
[2020-07-20] MEDS: LINEZOLID 600MG/300ML 300 ML IV SCH ×2 (02:08→14:26)
[2020-07-20] MEDS: hydrALAZINE HCL 20 MG/ML VL IV PRN ×2 (03:00→12:18)
[2020-07-20] MEDS: FUROSEMIDE 40 MG/4 ML VIAL IV SCH ×2 (05:28→18:13)
[2020-07-20] MEDS: MEROPENEM 1GM IVPB 100 ML IV SCH ×3 (05:28→21:05)
[2020-07-20] MEDS: cloNIDine HCL 0.1 MG TAB PO SCH ×3 (05:28→21:10)
[2020-07-20] MEDS: ACCU-CHEK COMFORT CURVE STRIP VI SCH ×4 (05:29→22:00)
[2020-07-20] MEDS: InsuLIN REG 1unit/0.01ml Soln (100units/ml) SC SCH ×4 (05:30→22:37)
[2020-07-20] MEDS: ALBUTEROL SULF 2.5 MG/0.5ML(0.5%) NEB SOLN NEB SCH ×3 (06:07→18:33)
[2020-07-20] MEDS: IPRATROPIUM BROM 0.5 MG/2.5ML INH SOL NEB SCH ×3 (06:07→18:33)
[2020-07-20 06:30] LABS: Basophils # (auto) 0.1 10 ^3/uL (0-0.2); Basophils % (auto) 1.2 % (0.0-2.0); Eosinophils # (auto) 1.2 10 ^3/uL (0-0.8); Eosinophils % (auto) 10.3 % (0.0-7.0); Hematocrit 22.5 % (41.0-53.0); Lymphocytes # (auto) 0.9 10 ^3/uL (0.4-5.4); Mean Corpuscular Hgb Conc. 35.7 g/dL (32.0-36.0); Mean Corpuscular Volume 81.5 fL (80.0-100.0); Monocytes % (auto) 8.8 % (0.0-12.0); Neutrophils # (auto) 8.2 10 ^3/uL (1.6-8.6); Neutrophils % (auto) 71.7 % (37.0-80.0); Red Blood Cells 2.77 10^6/uL (4.5-5.90); Red Cell Distribution Width 13.3 % (11.8-14.3); White Blood Cell 11.4 10^3/uL (4.4-10.8)
[2020-07-20 06:32] LABS: Potassium 3.8 mmol/L (3.5-5.1)
[2020-07-20 06:35] LABS: Albumin 2.3 g/dL (3.4-5.0); BUN/Creatinine Ratio 28.9
[2020-07-20 06:37] LABS: Bilirubin, Total 0.4 mg/dL (0.2-1.0); Total Protein 5.8 g/dL (6.4-8.2)
[2020-07-20] MEDS: INSULIN NPH Isophane (HUMAN) 1unit/0.01ml Susp(100units/ml) SC SCH ×2 (06:47→18:00)
[2020-07-20] MEDS: LEVOTHYROXINE SODIUM 25 MCG TAB PO SCH (08:00)
[2020-07-20] MEDS: POTASSIUM EFFERVESENT TAB 25 MEQ GT SCH (09:42)
[2020-07-20] MEDS: ASCORBIC ACID 500 MG TAB PO SCH ×2 (09:42→21:10)
[2020-07-20] MEDS: ASPirin 81 mg TAB PO SCH (09:42)
[2020-07-20] MEDS: PANTOPRAZOLE 40 MG/10 ML VIAL INJ IV SCH (09:42)
[2020-07-20] MEDS: LISINOPRIL 20 MG TAB PO SCH (09:43)
[2020-07-20] MEDS: ENOXAPARIN SOD 40 MG/0.4 ML SYRINGE SC SCH (09:43)
[2020-07-20] MEDS: CHOLECALCIFEROL (VITD3) 1,000UNIT=25mCg TAB PO SCH (09:43)
[2020-07-20] MEDS ORDERED: LABETALOL HCL 5 MG/ML 4ML SYRINGE IV PRN (11:00)
[2020-07-20] MEDS ORDERED: amLODIPine BESYLATE 5 MG TAB PO ONE (11:00)
[2020-07-20] MEDS: MIDAZOLAM DRIP 50 mg/50mL 50 ML IV SCH (13:15)
[2020-07-20] MEDS: PROPOFOL 100 ML IV SCH (13:15)
[2020-07-20] MEDS: SODIUM CHLORIDE 0.9% 1,000 ML IV SCH (15:28)
[2020-07-20] MEDS: NOREPINEPHRINE 8 MG/250ML KIT 250 ML IV SCH (16:45)
[2020-07-20] MEDS: fentaNYL Drip 2500mCg/250mlNS 250 ML IV SCH (16:45)
[2020-07-20] MEDS: ATORVASTATIN 20 MG TAB PO SCH (21:09)
[2020-07-21] MEDS: IPRATROPIUM BROM 0.5 MG/2.5ML INH SOL NEB SCH ×4 (00:01→19:38)
[2020-07-21] MEDS: ALBUTEROL SULF 2.5 MG/0.5ML(0.5%) NEB SOLN NEB SCH ×4 (00:02→19:38)
[2020-07-21] MEDS: LINEZOLID 600MG/300ML 300 ML IV SCH ×2 (01:05→15:02)
[2020-07-21] MEDS: hydrALAZINE HCL 20 MG/ML VL IV PRN (03:35)
[2020-07-21] MEDS: InsuLIN REG 1unit/0.01ml Soln (100units/ml) SC SCH ×4 (06:00→22:00)
[2020-07-21] MEDS: FUROSEMIDE 40 MG/4 ML VIAL IV SCH ×2 (06:39→18:13)
[2020-07-21] MEDS: MEROPENEM 1GM IVPB 100 ML IV SCH ×3 (06:39→22:27)
[2020-07-21] MEDS: INSULIN NPH Isophane (HUMAN) 1unit/0.01ml Susp(100units/ml) SC SCH ×2 (06:40→18:00)
[2020-07-21] MEDS: ACCU-CHEK COMFORT CURVE STRIP VI SCH ×4 (06:40→22:29)
[2020-07-21] MEDS: cloNIDine HCL 0.1 MG TAB PO SCH ×3 (06:41→22:28)
[2020-07-21] MEDS: SODIUM CHLORIDE 0.9% 1,000 ML IV SCH (08:44)
[2020-07-21 09:00] VITALS: BP 130/81
[2020-07-21] MEDS: PANTOPRAZOLE 40 MG/10 ML VIAL INJ IV SCH (10:24)
[2020-07-21] MEDS: ENOXAPARIN SOD 40 MG/0.4 ML SYRINGE SC SCH (10:24)
[2020-07-21] MEDS: LEVOTHYROXINE SODIUM 25 MCG TAB PO SCH (10:24)
[2020-07-21] MEDS: LISINOPRIL 20 MG TAB PO SCH (10:25)
[2020-07-21] MEDS: amLODIPine BESYLATE 5 MG TAB PO SCH (10:25)
[2020-07-21] MEDS: ASCORBIC ACID 500 MG TAB PO SCH ×2 (10:25→22:28)
[2020-07-21] MEDS: ASPirin 81 mg TAB PO SCH (10:25)
[2020-07-21] MEDS: POTASSIUM EFFERVESENT TAB 25 MEQ GT SCH (10:26)
[2020-07-21] MEDS: CHOLECALCIFEROL (VITD3) 1,000UNIT=25mCg TAB PO SCH (10:26)
[2020-07-21 13:00] VITALS: BP 138/72
[2020-07-21 17:13] VITALS: BP 143/75
[2020-07-21 20:29] VITALS: BP 143/85
[2020-07-21 22:00] VITALS: BP 143/81
[2020-07-21] MEDS: ATORVASTATIN 20 MG TAB PO SCH (22:28)
[2020-07-22] MEDS: IPRATROPIUM BROM 0.5 MG/2.5ML INH SOL NEB SCH ×4 (00:26→18:25)
[2020-07-22] MEDS: ALBUTEROL SULF 2.5 MG/0.5ML(0.5%) NEB SOLN NEB SCH ×4 (00:26→18:25)
[2020-07-22] MEDS: SODIUM CHLORIDE 0.9% 1,000 ML IV SCH ×2 (00:35→22:12)
[2020-07-22 05:00] VITALS: BP 174/90
[2020-07-22] MEDS: LINEZOLID 600MG/300ML 300 ML IV SCH ×2 (05:07→13:29)
[2020-07-22] MEDS: FUROSEMIDE 40 MG/4 ML VIAL IV SCH ×2 (05:09→17:34)
[2020-07-22] MEDS: cloNIDine HCL 0.1 MG TAB PO SCH ×3 (05:10→22:14)
[2020-07-22] MEDS: ACCU-CHEK COMFORT CURVE STRIP VI SCH ×4 (05:21→22:14)
[2020-07-22] MEDS: INSULIN NPH Isophane (HUMAN) 1unit/0.01ml Susp(100units/ml) SC SCH ×2 (05:22→18:34)
[2020-07-22] MEDS: InsuLIN REG 1unit/0.01ml Soln (100units/ml) SC SCH ×4 (05:22→22:00)
[2020-07-22] MEDS: MEROPENEM 1GM IVPB 100 ML IV SCH ×3 (05:23→22:13)
[2020-07-22 07:45] LABS: Basophils # (auto) 0.2 10 ^3/uL (0-0.2); Hemoglobin 7.7 g/dL (13.5-17.5); Monocytes # (auto) 1.1 10 ^3/uL (0-1.3); White Blood Cell 11.9 10^3/uL (4.4-10.8)
[2020-07-22 07:47] LABS: Basophils % (auto) 1.8 % (0.0-2.0); Eosinophils # (auto) 1.2 10 ^3/uL (0-0.8); Eosinophils % (auto) 9.7 % (0.0-7.0); Hematocrit 21.7 % (41.0-53.0); Lymphocytes # (auto) 1.5 10 ^3/uL (0.4-5.4); Lymphocytes % (auto) 12.7 % (10.0-50.0); Mean Corpuscular Hemoglobin 28.9 pg (28.0-32.0); Mean Corpuscular Hgb Conc. 35.6 g/dL (32.0-36.0); Mean Corpuscular Volume 81.1 fL (80.0-100.0); Neutrophils % (auto) 66.8 % (37.0-80.0); Red Blood Cells 2.68 10^6/uL (4.5-5.90); Red Cell Distribution Width 12.9 % (11.8-14.3)
[2020-07-22 07:58] LABS: Albumin 2.3 g/dL (3.4-5.0); Calcium 8.9 mg/dL (8.5-10.1); Potassium 3.5 mmol/L (3.5-5.1)
[2020-07-22 08:02] LABS: Bilirubin, Total 0.6 mg/dL (0.2-1.0); Total Protein 5.8 g/dL (6.4-8.2)
[2020-07-22 08:15] VITALS: BP 148/94
[2020-07-22] MEDS: LEVOTHYROXINE SODIUM 25 MCG TAB PO SCH (08:19)
[2020-07-22 08:38] VITALS: BP 181/90
[2020-07-22] MEDS: PANTOPRAZOLE 40 MG/10 ML VIAL INJ IV SCH (09:54)
[2020-07-22] MEDS: POTASSIUM EFFERVESENT TAB 25 MEQ GT SCH (09:54)
[2020-07-22] MEDS: LISINOPRIL 20 MG TAB PO SCH (09:55)
[2020-07-22] MEDS: CHOLECALCIFEROL (VITD3) 1,000UNIT=25mCg TAB PO SCH (09:55)
[2020-07-22] MEDS: ENOXAPARIN SOD 40 MG/0.4 ML SYRINGE SC SCH (09:56)
[2020-07-22] MEDS: amLODIPine BESYLATE 5 MG TAB PO SCH (09:56)
[2020-07-22] MEDS: ASCORBIC ACID 500 MG TAB PO SCH ×2 (09:56→22:14)
[2020-07-22] MEDS: ASPirin 81 mg TAB PO SCH (09:56)
[2020-07-22 13:00] VITALS: BP 154/81
[2020-07-22 17:00] VITALS: BP 143/75
[2020-07-22] MEDS: LACTULOSE 20Gm/30ML SOLN PO SCH ×2 (17:36→22:13)
[2020-07-22 22:00] VITALS: BP 123/63
[2020-07-22] MEDS: ATORVASTATIN 20 MG TAB PO SCH (22:14)
[2020-07-23] MEDS: ALBUTEROL SULF 2.5 MG/0.5ML(0.5%) NEB SOLN NEB SCH ×5 (00:03→23:32)
[2020-07-23] MEDS: IPRATROPIUM BROM 0.5 MG/2.5ML INH SOL NEB SCH ×5 (00:03→23:32)
[2020-07-23] MEDS: LINEZOLID 600MG/300ML 300 ML IV SCH ×2 (02:45→14:32)
[2020-07-23 05:00] VITALS: BP 163/102
[2020-07-23] MEDS: FUROSEMIDE 40 MG/4 ML VIAL IV SCH ×2 (05:28→17:44)
[2020-07-23] MEDS: cloNIDine HCL 0.1 MG TAB PO SCH ×3 (05:29→21:10)
[2020-07-23] MEDS: LACTULOSE 20Gm/30ML SOLN PO SCH ×2 (05:29→11:44)
[2020-07-23] MEDS: MEROPENEM 1GM IVPB 100 ML IV SCH ×3 (05:30→21:09)
[2020-07-23] MEDS: InsuLIN REG 1unit/0.01ml Soln (100units/ml) SC SCH ×4 (06:00→21:04)
[2020-07-23] MEDS: ACCU-CHEK COMFORT CURVE STRIP VI SCH ×4 (06:50→21:11)
[2020-07-23] MEDS: INSULIN NPH Isophane (HUMAN) 1unit/0.01ml Susp(100units/ml) SC SCH ×2 (06:57→18:00)
[2020-07-23] MEDS: LEVOTHYROXINE SODIUM 25 MCG TAB PO SCH (07:41)
[2020-07-23 09:03] VITALS: BP 160/81
[2020-07-23] MEDS: SODIUM CHLORIDE 0.9% 1,000 ML IV SCH ×2 (09:47→15:00)
[2020-07-23] MEDS: POTASSIUM EFFERVESENT TAB 25 MEQ GT SCH (09:58)
[2020-07-23] MEDS: ASPirin 81 mg TAB PO SCH (09:59)
[2020-07-23] MEDS: LISINOPRIL 20 MG TAB PO SCH (09:59)
[2020-07-23] MEDS: PANTOPRAZOLE 40 MG/10 ML VIAL INJ IV SCH (09:59)
[2020-07-23] MEDS: amLODIPine BESYLATE 5 MG TAB PO SCH (10:00)
[2020-07-23] MEDS: CHOLECALCIFEROL (VITD3) 1,000UNIT=25mCg TAB PO SCH (10:00)
[2020-07-23] MEDS: ENOXAPARIN SOD 40 MG/0.4 ML SYRINGE SC SCH (10:00)
[2020-07-23] MEDS: ASCORBIC ACID 500 MG TAB PO SCH ×2 (10:00→21:10)
[2020-07-23] MEDS: hydrALAZINE HCL 20 MG/ML VL IV PRN ×2 (11:46→23:45)
[2020-07-23 12:20] VITALS: BP 149/81
[2020-07-23 16:40] VITALS: BP 131/70
[2020-07-23] MEDS: ATORVASTATIN 20 MG TAB PO SCH (21:10)
[2020-07-23 22:00] VITALS: BP 152/78
[2020-07-24] MEDS: LINEZOLID 600MG/300ML 300 ML IV SCH ×2 (03:03→16:08)
[2020-07-24] MEDS: SODIUM CHLORIDE 0.9% 1,000 ML IV SCH ×2 (03:03→20:49)
[2020-07-24 05:00] VITALS: BP 146/76
[2020-07-24] MEDS: InsuLIN REG 1unit/0.01ml Soln (100units/ml) SC SCH ×4 (05:25→20:52)
[2020-07-24] MEDS: INSULIN NPH Isophane (HUMAN) 1unit/0.01ml Susp(100units/ml) SC SCH ×2 (05:26→17:54)
[2020-07-24] MEDS: FUROSEMIDE 40 MG/4 ML VIAL IV SCH ×2 (05:40→17:46)
[2020-07-24] MEDS: MEROPENEM 1GM IVPB 100 ML IV SCH ×3 (05:41→20:50)
[2020-07-24] MEDS: ACCU-CHEK COMFORT CURVE STRIP VI SCH ×4 (05:41→20:52)
[2020-07-24] MEDS: cloNIDine HCL 0.1 MG TAB PO SCH ×3 (05:41→20:51)
[2020-07-24] MEDS: IPRATROPIUM BROM 0.5 MG/2.5ML INH SOL NEB SCH ×3 (06:33→18:54)
[2020-07-24] MEDS: ALBUTEROL SULF 2.5 MG/0.5ML(0.5%) NEB SOLN NEB SCH ×3 (06:33→18:54)
[2020-07-24 07:40] LABS: Hematocrit 19.6 % (41.0-53.0); Mean Corpuscular Hemoglobin 28.8 pg (28.0-32.0); Mean Corpuscular Hgb Conc. 35.6 g/dL (32.0-36.0); Mean Corpuscular Volume 80.9 fL (80.0-100.0); Red Blood Cells 2.43 10^6/uL (4.5-5.90)
[2020-07-24 07:54] LABS: Basophils % (manual) 0 (0.0-2.0); Blast Cells 0; Metamyelocytes % 0; Myelocytes % 0; Promyelocytes % 0; Reactive Lymphocytes 0
[2020-07-24 07:57] LABS: Albumin 2.2 g/dL (3.4-5.0); BUN/Creatinine Ratio 17.5; Calcium 8.2 mg/dL (8.5-10.1); Potassium 3.7 mmol/L (3.5-5.1)
[2020-07-24 07:59] LABS: Bilirubin, Total 0.3 mg/dL (0.2-1.0); Total Protein 5.3 g/dL (6.4-8.2)
[2020-07-24 08:28] LABS: Band Neutrophils % (manual) 1; Eosinophils % (manual) 16 (0-7); Lymphocytes % (manual) 15 (10.0-50.0); Monocytes % (manual) 4 (0-12)
[2020-07-24 09:00] VITALS: BP 95/57
[2020-07-24] MEDS: LEVOTHYROXINE SODIUM 25 MCG TAB PO SCH (09:04)
[2020-07-24] MEDS: ASPirin 81 mg TAB PO SCH (10:45)
[2020-07-24] MEDS: PANTOPRAZOLE 40 MG/10 ML VIAL INJ IV SCH (10:45)
[2020-07-24] MEDS: ASCORBIC ACID 500 MG TAB PO SCH ×2 (10:45→20:51)
[2020-07-24] MEDS: POTASSIUM EFFERVESENT TAB 25 MEQ GT SCH (10:45)
[2020-07-24] MEDS: ENOXAPARIN SOD 40 MG/0.4 ML SYRINGE SC SCH (10:46)
[2020-07-24] MEDS: CHOLECALCIFEROL (VITD3) 1,000UNIT=25mCg TAB PO SCH (10:46)
[2020-07-24] MEDS: DEXTROSE (50%) 50ML SYRG IV PRN ×2 (12:48→16:07)
[2020-07-24 13:00] VITALS: BP 174/96
[2020-07-24] MEDS: amLODIPine BESYLATE 5 MG TAB PO SCH (13:21)
[2020-07-24] MEDS: LISINOPRIL 20 MG TAB PO SCH (13:22)
[2020-07-24 17:00] VITALS: BP 123/67
[2020-07-24 20:33] VITALS: BP 119/68
[2020-07-24] MEDS: ATORVASTATIN 20 MG TAB PO SCH (20:51)
[2020-07-24 22:00] VITALS: BP 151/70
[2020-07-25] VITALS (9 sets, daily range): BP systolic 131–168; BP diastolic 74–92
[2020-07-25] MEDS: IPRATROPIUM BROM 0.5 MG/2.5ML INH SOL NEB SCH ×4 (00:14→18:48)
[2020-07-25] MEDS: ALBUTEROL SULF 2.5 MG/0.5ML(0.5%) NEB SOLN NEB SCH ×4 (00:14→18:48)
[2020-07-25] MEDS: LINEZOLID 600MG/300ML 300 ML IV SCH ×2 (01:43→17:36)
[2020-07-25] MEDS: MEROPENEM 1GM IVPB 100 ML IV SCH ×3 (05:31→22:47)
[2020-07-25] MEDS: FUROSEMIDE 40 MG/4 ML VIAL IV SCH ×2 (05:31→18:24)
[2020-07-25] MEDS: InsuLIN REG 1unit/0.01ml Soln (100units/ml) SC SCH ×4 (05:32→22:00)
[2020-07-25] MEDS: cloNIDine HCL 0.1 MG TAB PO SCH ×3 (05:32→22:46)
[2020-07-25] MEDS: ACCU-CHEK COMFORT CURVE STRIP VI SCH ×4 (05:33→22:29)
[2020-07-25] MEDS: INSULIN NPH Isophane (HUMAN) 1unit/0.01ml Susp(100units/ml) SC SCH ×2 (05:34→18:00)
[2020-07-25 06:06] LABS: Mean Corpuscular Hemoglobin 28.9 pg (28.0-32.0); Mean Corpuscular Hgb Conc. 35.7 g/dL (32.0-36.0); Red Blood Cells 2.34 10^6/uL (4.5-5.90); Red Cell Distribution Width 13.3 % (11.8-14.3); White Blood Cell 6.2 10^3/uL (4.4-10.8)
[2020-07-25 06:31] LABS: Basophils % (manual) 0 (0.0-2.0); Blast Cells 0; Hemoglobin 6.8 g/dL (13.5-17.5); Metamyelocytes % 0; Myelocytes % 0; Promyelocytes % 0; Reactive Lymphocytes 0
[2020-07-25 06:32] LABS: Potassium 3.7 mmol/L (3.5-5.1)
[2020-07-25 06:43] LABS: Albumin 2.1 g/dL (3.4-5.0); BUN/Creatinine Ratio 15.9; Bilirubin, Total 0.2 mg/dL (0.2-1.0); Calcium 7.8 mg/dL (8.5-10.1); Total Protein 5.1 g/dL (6.4-8.2)
[2020-07-25 07:45] LABS: Band Neutrophils % (manual) 7; Eosinophils % (manual) 20 (0-7); Lymphocytes % (manual) 24 (10.0-50.0); Monocytes % (manual) 3 (0-12)
[2020-07-25] MEDS: ENOXAPARIN SOD 40 MG/0.4 ML SYRINGE SC SCH (10:00)
[2020-07-25] MEDS: POTASSIUM EFFERVESENT TAB 25 MEQ GT SCH (10:00)
[2020-07-25] MEDS: ASCORBIC ACID 500 MG TAB PO SCH ×2 (10:56→22:47)
[2020-07-25] MEDS: LEVOTHYROXINE SODIUM 25 MCG TAB PO SCH (10:56)
[2020-07-25] MEDS: PANTOPRAZOLE 40 MG/10 ML VIAL INJ IV SCH (10:58)
[2020-07-25] MEDS: amLODIPine BESYLATE 5 MG TAB PO SCH (10:58)
[2020-07-25] MEDS: ASPirin 81 mg TAB PO SCH (10:58)
[2020-07-25] MEDS: LISINOPRIL 20 MG TAB PO SCH (11:00)
[2020-07-25] MEDS: CHOLECALCIFEROL (VITD3) 1,000UNIT=25mCg TAB PO SCH (11:01)
[2020-07-25 16:27] LABS: Hematocrit 24.1 % (41.0-53.0); Hemoglobin 8.5 g/dL (13.5-17.5); Mean Corpuscular Hemoglobin 29.7 pg (28.0-32.0); Mean Corpuscular Hgb Conc. 35.4 g/dL (32.0-36.0); Red Blood Cells 2.86 10^6/uL (4.5-5.90); Red Cell Distribution Width 15.1 % (11.8-14.3); White Blood Cell 6.2 10^3/uL (4.4-10.8)
[2020-07-25 16:34] LABS: Band Neutrophils % (manual) 0; Basophils % (manual) 0 (0.0-2.0); Blast Cells 0; Metamyelocytes % 0; Myelocytes % 0; Promyelocytes % 0; Reactive Lymphocytes 0
[2020-07-25 17:10] LABS: Eosinophils % (manual) 21 (0-7); Lymphocytes % (manual) 25 (10.0-50.0); Monocytes % (manual) 4 (0-12)
[2020-07-25] MEDS: SODIUM CHLORIDE 0.9% 1,000 ML IV SCH (19:00)
[2020-07-25] MEDS ORDERED: DEXTROSE (50%) 50ML SYRG IV PRN (21:30)
[2020-07-25] MEDS: ATORVASTATIN 20 MG TAB PO SCH (22:46)
[2020-07-26] MEDS: ALBUTEROL SULF 2.5 MG/0.5ML(0.5%) NEB SOLN NEB SCH ×4 (00:32→19:02)
[2020-07-26] MEDS: IPRATROPIUM BROM 0.5 MG/2.5ML INH SOL NEB SCH ×4 (00:32→19:02)
[2020-07-26 01:14] VITALS: BP 153/86
[2020-07-26] MEDS: LINEZOLID 600MG/300ML 300 ML IV SCH ×2 (02:00→14:15)
[2020-07-26] MEDS: SODIUM CHLORIDE 0.9% 1,000 ML IV SCH ×2 (04:35→21:43)
[2020-07-26 05:00] VITALS: BP 164/97
[2020-07-26] MEDS: FUROSEMIDE 40 MG/4 ML VIAL IV SCH ×2 (05:36→18:26)
[2020-07-26] MEDS: cloNIDine HCL 0.1 MG TAB PO SCH ×3 (05:37→22:12)
[2020-07-26 05:41] LABS: Hematocrit 29.7 % (41.0-53.0); Hemoglobin 10.6 g/dL (13.5-17.5); Mean Corpuscular Hgb Conc. 35.6 g/dL (32.0-36.0); Mean Corpuscular Volume 84.2 fL (80.0-100.0); Red Blood Cells 3.52 10^6/uL (4.5-5.90); Red Cell Distribution Width 15.3 % (11.8-14.3); White Blood Cell 7.4 10^3/uL (4.4-10.8)
[2020-07-26 05:54] LABS: Basophils % (manual) 0 (0.0-2.0); Blast Cells 0; Metamyelocytes % 0; Promyelocytes % 0; Reactive Lymphocytes 0
[2020-07-26] MEDS: MEROPENEM 1GM IVPB 100 ML IV SCH ×2 (06:21→14:15)
[2020-07-26 06:23] LABS: BUN/Creatinine Ratio 15.1; Calcium 8.3 mg/dL (8.5-10.1); Potassium 4.4 mmol/L (3.5-5.1)
[2020-07-26] MEDS: ACCU-CHEK COMFORT CURVE STRIP VI SCH ×4 (06:27→21:58)
[2020-07-26] MEDS: InsuLIN REG 1unit/0.01ml Soln (100units/ml) SC SCH ×4 (06:31→22:00)
[2020-07-26 06:51] LABS: Band Neutrophils % (manual) 2; Eosinophils % (manual) 29 (0-7); Lymphocytes % (manual) 20 (10.0-50.0); Monocytes % (manual) 6 (0-12); Myelocytes % 1
[2020-07-26] MEDS: LABETALOL HCL 5 MG/ML ML 20ML VIAL IV PRN ×2 (07:28→11:39)
[2020-07-26 09:00] VITALS: BP 154/85
[2020-07-26] MEDS: amLODIPine BESYLATE 5 MG TAB PO SCH (09:53)
[2020-07-26] MEDS: LEVOTHYROXINE SODIUM 25 MCG TAB PO SCH (09:53)
[2020-07-26] MEDS: POTASSIUM EFFERVESENT TAB 25 MEQ GT SCH (09:53)
[2020-07-26] MEDS: PANTOPRAZOLE 40 MG/10 ML VIAL INJ IV SCH (09:53)
[2020-07-26] MEDS: CHOLECALCIFEROL (VITD3) 1,000UNIT=25mCg TAB PO SCH (09:54)
[2020-07-26] MEDS: ASCORBIC ACID 500 MG TAB PO SCH ×2 (09:54→22:12)
[2020-07-26] MEDS: LISINOPRIL 20 MG TAB PO SCH (09:54)
[2020-07-26] MEDS: CLOPIDOGREL BISULFATE 75 MG TAB PO SCH (09:54)
[2020-07-26] MEDS: ASPirin 81 mg TAB PO SCH (09:54)
[2020-07-26 13:00] VITALS: BP 162/92
[2020-07-26 17:00] VITALS: BP 148/94
[2020-07-26 22:00] VITALS: BP 147/90
[2020-07-26] MEDS: ATORVASTATIN 20 MG TAB PO SCH (22:13)
[2020-07-27] MEDS: IPRATROPIUM BROM 0.5 MG/2.5ML INH SOL NEB SCH ×3 (00:11→18:50)
[2020-07-27] MEDS: ALBUTEROL SULF 2.5 MG/0.5ML(0.5%) NEB SOLN NEB SCH ×3 (00:11→18:50)
[2020-07-27 05:00] VITALS: BP 132/85
[2020-07-27] MEDS: FUROSEMIDE 40 MG/4 ML VIAL IV SCH ×2 (05:49→18:10)
[2020-07-27] MEDS: cloNIDine HCL 0.1 MG TAB PO SCH ×3 (05:50→21:29)
[2020-07-27 06:09] LABS: Hematocrit 30.6 % (41.0-53.0); Mean Corpuscular Hemoglobin 30.1 pg (28.0-32.0); Mean Corpuscular Hgb Conc. 35.9 g/dL (32.0-36.0); Red Blood Cells 3.64 10^6/uL (4.5-5.90); Red Cell Distribution Width 15.7 % (11.8-14.3); White Blood Cell 7.4 10^3/uL (4.4-10.8)
[2020-07-27 06:20] LABS: Potassium 4.5 mmol/L (3.5-5.1)
[2020-07-27] MEDS: ACCU-CHEK COMFORT CURVE STRIP VI SCH ×4 (06:26→21:30)
[2020-07-27 06:28] LABS: BUN/Creatinine Ratio 17.6; Calcium 8.5 mg/dL (8.5-10.1)
[2020-07-27] MEDS: InsuLIN REG 1unit/0.01ml Soln (100units/ml) SC SCH ×4 (06:32→21:40)
[2020-07-27 06:33] LABS: Basophils % (manual) 0 (0.0-2.0); Blast Cells 0; Myelocytes % 0; Promyelocytes % 0; Reactive Lymphocytes 0
[2020-07-27 07:09] LABS: Band Neutrophils % (manual) 3; Eosinophils % (manual) 18 (0-7); Lymphocytes % (manual) 23 (10.0-50.0); Metamyelocytes % 4; Monocytes % (manual) 8 (0-12)
[2020-07-27 09:00] VITALS: BP 152/94
[2020-07-27] MEDS: LEVOTHYROXINE SODIUM 25 MCG TAB PO SCH (09:22)
[2020-07-27] MEDS: PANTOPRAZOLE 40 MG/10 ML VIAL INJ IV SCH (09:22)
[2020-07-27] MEDS: ASPirin 81 mg TAB PO SCH (09:22)
[2020-07-27] MEDS: POTASSIUM EFFERVESENT TAB 25 MEQ GT SCH (09:22)
[2020-07-27] MEDS: ASCORBIC ACID 500 MG TAB PO SCH ×2 (09:23→21:30)
[2020-07-27] MEDS: CLOPIDOGREL BISULFATE 75 MG TAB PO SCH (09:23)
[2020-07-27] MEDS: CHOLECALCIFEROL (VITD3) 1,000UNIT=25mCg TAB PO SCH (09:23)
[2020-07-27] MEDS: amLODIPine BESYLATE 5 MG TAB PO SCH (09:23)
[2020-07-27] MEDS: LISINOPRIL 20 MG TAB PO SCH (09:24)
[2020-07-27 12:47] VITALS: BP 166/99
[2020-07-27] MEDS: SODIUM CHLORIDE 0.9% 1,000 ML IV SCH (13:55)
[2020-07-27 16:36] VITALS: BP 104/70
[2020-07-27] MEDS: HYDROcodone-ACET 10/325MG TAB PO PRN (19:47)
[2020-07-27 21:24] VITALS: BP 130/59
[2020-07-27] MEDS: ATORVASTATIN 20 MG TAB PO SCH (21:29)
[2020-07-27 23:03] VITALS: BP 153/89
[2020-07-28] MEDS: ALBUTEROL SULF 2.5 MG/0.5ML(0.5%) NEB SOLN NEB SCH ×4 (00:05→19:07)
[2020-07-28] MEDS: IPRATROPIUM BROM 0.5 MG/2.5ML INH SOL NEB SCH ×4 (00:05→19:07)
[2020-07-28 05:33] VITALS: BP 114/68
[2020-07-28] MEDS: ACCU-CHEK COMFORT CURVE STRIP VI SCH ×4 (06:05→21:50)
[2020-07-28] MEDS: SODIUM CHLORIDE 0.9% 1,000 ML IV SCH ×2 (06:05→23:52)
[2020-07-28] MEDS: InsuLIN REG 1unit/0.01ml Soln (100units/ml) SC SCH ×4 (06:05→22:20)
[2020-07-28] MEDS: FUROSEMIDE 40 MG/4 ML VIAL IV SCH ×2 (06:05→17:27)
[2020-07-28] MEDS: cloNIDine HCL 0.1 MG TAB PO SCH ×3 (06:05→21:49)
[2020-07-28 06:49] LABS: Hematocrit 29.5 % (41.0-53.0); Hemoglobin 10.5 g/dL (13.5-17.5); Mean Corpuscular Hgb Conc. 35.5 g/dL (32.0-36.0); Mean Corpuscular Volume 84.4 fL (80.0-100.0); Red Blood Cells 3.49 10^6/uL (4.5-5.90); Red Cell Distribution Width 15.7 % (11.8-14.3); White Blood Cell 6.9 10^3/uL (4.4-10.8)
[2020-07-28 06:53] LABS: Basophils % (manual) 0 (0.0-2.0); Blast Cells 0; Myelocytes % 0; Promyelocytes % 0; Reactive Lymphocytes 0
[2020-07-28 07:05] LABS: Calcium 8.6 mg/dL (8.5-10.1); Potassium 5.2 mmol/L (3.5-5.1)
[2020-07-28 07:07] LABS: BUN/Creatinine Ratio 24.8
[2020-07-28 09:00] VITALS: BP 126/74
[2020-07-28] MEDS: POTASSIUM EFFERVESENT TAB 25 MEQ GT SCH (10:00)
[2020-07-28 10:23] LABS: Band Neutrophils % (manual) 2; Eosinophils % (manual) 19 (0-7); Lymphocytes % (manual) 17 (10.0-50.0); Metamyelocytes % 1; Monocytes % (manual) 5 (0-12)
[2020-07-28] MEDS: LEVOTHYROXINE SODIUM 25 MCG TAB PO SCH (10:37)
[2020-07-28] MEDS: CHOLECALCIFEROL (VITD3) 1,000UNIT=25mCg TAB PO SCH (10:38)
[2020-07-28] MEDS: amLODIPine BESYLATE 5 MG TAB PO SCH (10:38)
[2020-07-28] MEDS: PANTOPRAZOLE 40 MG/10 ML VIAL INJ IV SCH (10:38)
[2020-07-28] MEDS: ASCORBIC ACID 500 MG TAB PO SCH ×2 (10:38→21:50)
[2020-07-28] MEDS: CLOPIDOGREL BISULFATE 75 MG TAB PO SCH (10:38)
[2020-07-28] MEDS: ASPirin 81 mg TAB PO SCH (10:38)
[2020-07-28] MEDS: LISINOPRIL 20 MG TAB PO SCH (10:39)
[2020-07-28 13:00] VITALS: BP 133/80
[2020-07-28 17:00] VITALS: BP 129/79
[2020-07-28] MEDS: ATORVASTATIN 20 MG TAB PO SCH (21:50)
[2020-07-28 23:41] VITALS: BP 130/78
[2020-07-29] MEDS: ALBUTEROL SULF 2.5 MG/0.5ML(0.5%) NEB SOLN NEB SCH ×4 (00:39→18:45)
[2020-07-29] MEDS: IPRATROPIUM BROM 0.5 MG/2.5ML INH SOL NEB SCH ×4 (00:39→18:45)
[2020-07-29 05:19] VITALS: BP 156/100
[2020-07-29] MEDS: FUROSEMIDE 40 MG/4 ML VIAL IV SCH ×2 (05:37→18:32)
[2020-07-29] MEDS: cloNIDine HCL 0.1 MG TAB PO SCH ×3 (05:38→22:20)
[2020-07-29] MEDS: ACCU-CHEK COMFORT CURVE STRIP VI SCH ×4 (05:38→22:21)
[2020-07-29] MEDS: HYDROcodone-ACET 10/325MG TAB PO PRN ×3 (05:38→18:47)
[2020-07-29] MEDS: InsuLIN REG 1unit/0.01ml Soln (100units/ml) SC SCH ×4 (05:57→22:00)
[2020-07-29 09:00] VITALS: BP_SYST 123; BP_SYST 145; BP_DIAS 70
[2020-07-29] MEDS: POTASSIUM EFFERVESENT TAB 25 MEQ GT SCH (09:59)
[2020-07-29] MEDS: LEVOTHYROXINE SODIUM 25 MCG TAB PO SCH (10:00)
[2020-07-29] MEDS: CLOPIDOGREL BISULFATE 75 MG TAB PO SCH (10:00)
[2020-07-29] MEDS: PANTOPRAZOLE 40 MG/10 ML VIAL INJ IV SCH (10:00)
[2020-07-29] MEDS: CHOLECALCIFEROL (VITD3) 1,000UNIT=25mCg TAB PO SCH (10:01)
[2020-07-29] MEDS: ASCORBIC ACID 500 MG TAB PO SCH ×2 (10:01→22:21)
[2020-07-29] MEDS: LISINOPRIL 20 MG TAB PO SCH (10:01)
[2020-07-29] MEDS: amLODIPine BESYLATE 5 MG TAB PO SCH (10:02)
[2020-07-29] MEDS: ASPirin 81 mg TAB PO SCH (10:02)
[2020-07-29 13:00] VITALS: BP 158/97
[2020-07-29] MEDS: SODIUM CHLORIDE 0.9% 1,000 ML IV SCH (15:55)
[2020-07-29] MEDS: LABETALOL HCL 5 MG/ML ML 20ML VIAL IV PRN (17:20)
[2020-07-29 17:57] VITALS: BP 165/106
[2020-07-29] MEDS: ATORVASTATIN 20 MG TAB PO SCH (22:20)
[2020-07-29 23:10] VITALS: BP 118/70
[2020-07-30] VITALS (7 sets, daily range): BP systolic 104–163; BP diastolic 65–88
[2020-07-30] MEDS: hydrALAZINE HCL 20 MG/ML VL IV PRN (00:42)
[2020-07-30] MEDS: FUROSEMIDE 40 MG/4 ML VIAL IV SCH ×2 (05:48→17:54)
[2020-07-30] MEDS: cloNIDine HCL 0.1 MG TAB PO SCH ×3 (05:48→21:58)
[2020-07-30] MEDS: ACCU-CHEK COMFORT CURVE STRIP VI SCH ×4 (06:38→21:46)
[2020-07-30] MEDS: ALBUTEROL SULF 2.5 MG/0.5ML(0.5%) NEB SOLN NEB SCH ×5 (06:39→23:55)
[2020-07-30] MEDS: InsuLIN REG 1unit/0.01ml Soln (100units/ml) SC SCH ×4 (06:40→21:57)
[2020-07-30] MEDS: IPRATROPIUM BROM 0.5 MG/2.5ML INH SOL NEB SCH ×5 (06:40→23:55)
[2020-07-30] MEDS: LEVOTHYROXINE SODIUM 25 MCG TAB PO SCH (07:52)
[2020-07-30 08:16] LABS: BUN/Creatinine Ratio 30.5; Calcium 8.6 mg/dL (8.5-10.1); Potassium 4.4 mmol/L (3.5-5.1)
[2020-07-30] MEDS: SODIUM CHLORIDE 0.9% 1,000 ML IV SCH (08:35)
[2020-07-30] MEDS: CHOLECALCIFEROL (VITD3) 1,000UNIT=25mCg TAB PO SCH (09:50)
[2020-07-30] MEDS: POTASSIUM EFFERVESENT TAB 25 MEQ GT SCH (09:53)
[2020-07-30] MEDS: ASPirin 81 mg TAB PO SCH (09:53)
[2020-07-30] MEDS: PANTOPRAZOLE 40 MG/10 ML VIAL INJ IV SCH (09:53)
[2020-07-30] MEDS: ASCORBIC ACID 500 MG TAB PO SCH ×2 (09:55→21:58)
[2020-07-30] MEDS: LISINOPRIL 20 MG TAB PO SCH (09:55)
[2020-07-30] MEDS: CLOPIDOGREL BISULFATE 75 MG TAB PO SCH (09:55)
[2020-07-30] MEDS: amLODIPine BESYLATE 5 MG TAB PO SCH (09:55)
[2020-07-30] MEDS: HYDROcodone-ACET 10/325MG TAB PO PRN ×2 (13:25→20:45)
[2020-07-30] MEDS: ATORVASTATIN 20 MG TAB PO SCH (21:58)
[2020-07-31] MEDS: SODIUM CHLORIDE 0.9% 1,000 ML IV SCH ×2 (01:15→10:20)
[2020-07-31 05:00] VITALS: BP 161/95
[2020-07-31] MEDS: FUROSEMIDE 40 MG/4 ML VIAL IV SCH ×2 (05:38→17:47)
[2020-07-31] MEDS: cloNIDine HCL 0.1 MG TAB PO SCH ×3 (05:39→22:15)
[2020-07-31] MEDS: ACCU-CHEK COMFORT CURVE STRIP VI SCH ×4 (06:35→22:00)
[2020-07-31] MEDS: InsuLIN REG 1unit/0.01ml Soln (100units/ml) SC SCH ×4 (06:39→22:00)
[2020-07-31] MEDS: IPRATROPIUM BROM 0.5 MG/2.5ML INH SOL NEB SCH ×3 (06:54→18:44)
[2020-07-31] MEDS: ALBUTEROL SULF 2.5 MG/0.5ML(0.5%) NEB SOLN NEB SCH ×3 (06:54→18:44)
[2020-07-31 08:25] VITALS: BP 132/77
[2020-07-31] MEDS: ASPirin 81 mg TAB PO SCH (09:45)
[2020-07-31] MEDS: LEVOTHYROXINE SODIUM 25 MCG TAB PO SCH (09:45)
[2020-07-31] MEDS: ASCORBIC ACID 500 MG TAB PO SCH ×2 (09:45→22:14)
[2020-07-31] MEDS: CLOPIDOGREL BISULFATE 75 MG TAB PO SCH (09:45)
[2020-07-31] MEDS: POTASSIUM EFFERVESENT TAB 25 MEQ GT SCH (09:45)
[2020-07-31] MEDS: PANTOPRAZOLE 40 MG/10 ML VIAL INJ IV SCH (09:45)
[2020-07-31] MEDS: HYDROcodone-ACET 10/325MG TAB PO PRN ×3 (09:46→22:13)
[2020-07-31] MEDS: CHOLECALCIFEROL (VITD3) 1,000UNIT=25mCg TAB PO SCH (09:46)
[2020-07-31] MEDS: amLODIPine BESYLATE 5 MG TAB PO SCH (09:47)
[2020-07-31] MEDS: LISINOPRIL 20 MG TAB PO SCH (09:47)
[2020-07-31 12:24] VITALS: BP 146/80
[2020-07-31 16:35] VITALS: BP 139/81
[2020-07-31 18:33] VITALS: BP 120/73
[2020-07-31] MEDS: ATORVASTATIN 20 MG TAB PO SCH (22:14)
[2020-07-31 22:21] VITALS: BP_SYST 113; BP_SYST 164; BP_DIAS 66; BP_DIAS 99
[2020-08-01] MEDS: ALBUTEROL SULF 2.5 MG/0.5ML(0.5%) NEB SOLN NEB SCH ×4 (00:14→18:41)
[2020-08-01] MEDS: IPRATROPIUM BROM 0.5 MG/2.5ML INH SOL NEB SCH ×4 (00:14→18:41)
[2020-08-01 05:00] VITALS: BP 127/72
[2020-08-01] MEDS: FUROSEMIDE 40 MG/4 ML VIAL IV SCH ×2 (06:00→17:55)
[2020-08-01] MEDS: cloNIDine HCL 0.1 MG TAB PO SCH ×3 (06:00→22:00)
[2020-08-01] MEDS: ACCU-CHEK COMFORT CURVE STRIP VI SCH ×4 (06:53→22:00)
[2020-08-01] MEDS: InsuLIN REG 1unit/0.01ml Soln (100units/ml) SC SCH ×4 (06:58→22:00)
[2020-08-01 07:10] LABS: Hematocrit 31.3 % (41.0-53.0); Mean Corpuscular Hemoglobin 30.2 pg (28.0-32.0); Mean Corpuscular Hgb Conc. 35.2 g/dL (32.0-36.0); Mean Corpuscular Volume 85.8 fL (80.0-100.0); Red Blood Cells 3.65 10^6/uL (4.5-5.90); White Blood Cell 8.6 10^3/uL (4.4-10.8)
[2020-08-01 07:12] LABS: Basophils % (manual) 0 (0.0-2.0); Blast Cells 0; Metamyelocytes % 0; Myelocytes % 0; Promyelocytes % 0; Reactive Lymphocytes 0
[2020-08-01 07:43] LABS: Potassium 4.2 mmol/L (3.5-5.1)
[2020-08-01 08:00] LABS: Albumin 3.1 g/dL (3.4-5.0); BUN/Creatinine Ratio 31.4; Bilirubin, Total 0.4 mg/dL (0.2-1.0); Total Protein 6.8 g/dL (6.4-8.2)
[2020-08-01 08:09] LABS: Band Neutrophils % (manual) 2; Eosinophils % (manual) 16 (0-7); Lymphocytes % (manual) 21 (10.0-50.0); Monocytes % (manual) 6 (0-12)
[2020-08-01] MEDS: LEVOTHYROXINE SODIUM 25 MCG TAB PO SCH (08:16)
[2020-08-01] MEDS: PANTOPRAZOLE 40 MG/10 ML VIAL INJ IV SCH (09:21)
[2020-08-01 09:22] VITALS: BP 156/97
[2020-08-01] MEDS: CLOPIDOGREL BISULFATE 75 MG TAB PO SCH (09:22)
[2020-08-01] MEDS: amLODIPine BESYLATE 5 MG TAB PO SCH (09:22)
[2020-08-01] MEDS: ASPirin 81 mg TAB PO SCH (09:22)
[2020-08-01] MEDS: ASCORBIC ACID 500 MG TAB PO SCH ×2 (09:23→22:00)
[2020-08-01] MEDS: LISINOPRIL 20 MG TAB PO SCH (09:23)
[2020-08-01] MEDS: CHOLECALCIFEROL (VITD3) 1,000UNIT=25mCg TAB PO SCH (09:24)
[2020-08-01] MEDS: POTASSIUM EFFERVESENT TAB 25 MEQ GT SCH (09:24)
[2020-08-01] MEDS: SODIUM CHLORIDE 0.9% 1,000 ML IV SCH (10:35)
[2020-08-01 14:33] VITALS: BP 139/92
[2020-08-01 17:02] VITALS: BP 140/70
[2020-08-01] MEDS: HYDROcodone-ACET 10/325MG TAB PO PRN (19:49)
[2020-08-01 22:00] VITALS: BP 130/76
[2020-08-01] MEDS: ATORVASTATIN 20 MG TAB PO SCH (22:00)
[2020-08-02] MEDS: IPRATROPIUM BROM 0.5 MG/2.5ML INH SOL NEB SCH ×4 (00:05→18:29)
[2020-08-02] MEDS: ALBUTEROL SULF 2.5 MG/0.5ML(0.5%) NEB SOLN NEB SCH ×4 (00:05→18:29)
[2020-08-02] MEDS: SODIUM CHLORIDE 0.9% 1,000 ML IV SCH ×2 (03:15→19:55)
[2020-08-02 05:00] VITALS: BP 138/70
[2020-08-02] MEDS: FUROSEMIDE 40 MG/4 ML VIAL IV SCH ×2 (06:00→16:57)
[2020-08-02] MEDS: cloNIDine HCL 0.1 MG TAB PO SCH ×3 (06:00→22:00)
[2020-08-02] MEDS: InsuLIN REG 1unit/0.01ml Soln (100units/ml) SC SCH ×4 (06:24→22:00)
[2020-08-02] MEDS: ACCU-CHEK COMFORT CURVE STRIP VI SCH ×4 (06:24→22:00)
[2020-08-02] MEDS: POTASSIUM EFFERVESENT TAB 25 MEQ GT SCH (08:12)
[2020-08-02] MEDS: LEVOTHYROXINE SODIUM 25 MCG TAB PO SCH (08:12)
[2020-08-02] MEDS: LISINOPRIL 20 MG TAB PO SCH (08:13)
[2020-08-02] MEDS: ASPirin 81 mg TAB PO SCH (08:13)
[2020-08-02] MEDS: CHOLECALCIFEROL (VITD3) 1,000UNIT=25mCg TAB PO SCH (08:14)
[2020-08-02] MEDS: CLOPIDOGREL BISULFATE 75 MG TAB PO SCH (08:14)
[2020-08-02] MEDS: amLODIPine BESYLATE 5 MG TAB PO SCH (08:15)
[2020-08-02] MEDS: ASCORBIC ACID 500 MG TAB PO SCH ×2 (08:15→22:00)
[2020-08-02] MEDS: PANTOPRAZOLE 40 MG/10 ML VIAL INJ IV SCH (08:16)
[2020-08-02] MEDS: HYDROcodone-ACET 10/325MG TAB PO PRN ×2 (08:16→16:58)
[2020-08-02 08:56] VITALS: BP 121/78
[2020-08-02 12:58] VITALS: BP_SYST 135; BP_SYST 175; BP_DIAS 91; BP_DIAS 92
[2020-08-02 17:03] VITALS: BP 122/75
[2020-08-02 20:18] VITALS: BP 122/75
[2020-08-02 22:00] VITALS: BP 145/98
[2020-08-02] MEDS: ATORVASTATIN 20 MG TAB PO SCH (22:00)
[2020-08-03] MEDS: IPRATROPIUM BROM 0.5 MG/2.5ML INH SOL NEB SCH ×5 (00:20→22:13)
[2020-08-03] MEDS: ALBUTEROL SULF 2.5 MG/0.5ML(0.5%) NEB SOLN NEB SCH ×5 (00:20→22:13)
[2020-08-03] MEDS: hydrALAZINE HCL 20 MG/ML VL IV PRN (05:27)
[2020-08-03] MEDS: cloNIDine HCL 0.1 MG TAB PO SCH ×3 (06:00→21:43)
[2020-08-03] MEDS: FUROSEMIDE 40 MG/4 ML VIAL IV SCH ×2 (06:00→17:20)
[2020-08-03] MEDS: ACCU-CHEK COMFORT CURVE STRIP VI SCH ×4 (06:21→21:45)
[2020-08-03] MEDS: HYDROcodone-ACET 10/325MG TAB PO PRN (06:22)
[2020-08-03] MEDS: InsuLIN REG 1unit/0.01ml Soln (100units/ml) SC SCH ×4 (06:38→21:44)
[2020-08-03] MEDS: LEVOTHYROXINE SODIUM 25 MCG TAB PO SCH (08:26)
[2020-08-03] MEDS: POTASSIUM EFFERVESENT TAB 25 MEQ GT SCH (08:26)
[2020-08-03] MEDS: PANTOPRAZOLE 40 MG/10 ML VIAL INJ IV SCH (08:26)
[2020-08-03] MEDS: ASPirin 81 mg TAB PO SCH (08:27)
[2020-08-03] MEDS: amLODIPine BESYLATE 5 MG TAB PO SCH (08:27)
[2020-08-03] MEDS: CLOPIDOGREL BISULFATE 75 MG TAB PO SCH (08:27)
[2020-08-03] MEDS: CHOLECALCIFEROL (VITD3) 1,000UNIT=25mCg TAB PO SCH (08:28)
[2020-08-03] MEDS: ASCORBIC ACID 500 MG TAB PO SCH ×2 (08:28→21:44)
[2020-08-03] MEDS: LISINOPRIL 20 MG TAB PO SCH (08:28)
[2020-08-03 08:56] VITALS: BP 160/83
[2020-08-03 12:17] VITALS: BP 122/78
[2020-08-03 12:41] VITALS: BP 106/62
[2020-08-03] MEDS: SODIUM CHLORIDE 0.9% 1,000 ML IV SCH (13:47)
[2020-08-03 17:00] VITALS: BP 141/87
[2020-08-03] MEDS: ATORVASTATIN 20 MG TAB PO SCH (21:43)
[2020-08-03 22:00] VITALS: BP 175/105
[2020-08-03] MEDS: LABETALOL HCL 5 MG/ML ML 20ML VIAL IV PRN (23:04)
[2020-08-04] MEDS: SODIUM CHLORIDE 0.9% 1,000 ML IV SCH ×2 (04:08→21:03)
[2020-08-04 05:00] VITALS: BP 181/92
[2020-08-04] MEDS: cloNIDine HCL 0.1 MG TAB PO SCH ×3 (05:02→21:04)
[2020-08-04] MEDS: FUROSEMIDE 40 MG/4 ML VIAL IV SCH ×2 (05:02→18:00)
[2020-08-04] MEDS: ACCU-CHEK COMFORT CURVE STRIP VI SCH ×4 (06:03→21:04)
[2020-08-04] MEDS: InsuLIN REG 1unit/0.01ml Soln (100units/ml) SC SCH ×4 (06:06→21:06)
[2020-08-04] MEDS: ALBUTEROL SULF 2.5 MG/0.5ML(0.5%) NEB SOLN NEB SCH ×3 (06:52→19:16)
[2020-08-04] MEDS: IPRATROPIUM BROM 0.5 MG/2.5ML INH SOL NEB SCH ×3 (06:52→19:16)
[2020-08-04] MEDS: LEVOTHYROXINE SODIUM 25 MCG TAB PO SCH (08:00)
[2020-08-04 09:00] VITALS: BP 131/87
[2020-08-04] MEDS: ASPirin 81 mg TAB PO SCH (10:32)
[2020-08-04] MEDS: PANTOPRAZOLE 40 MG/10 ML VIAL INJ IV SCH (10:32)
[2020-08-04] MEDS: POTASSIUM EFFERVESENT TAB 25 MEQ GT SCH (10:32)
[2020-08-04] MEDS: amLODIPine BESYLATE 5 MG TAB PO SCH (10:33)
[2020-08-04] MEDS: CHOLECALCIFEROL (VITD3) 1,000UNIT=25mCg TAB PO SCH (10:33)
[2020-08-04] MEDS: ASCORBIC ACID 500 MG TAB PO SCH ×2 (10:33→21:04)
[2020-08-04] MEDS: CLOPIDOGREL BISULFATE 75 MG TAB PO SCH (10:33)
[2020-08-04] MEDS: LISINOPRIL 20 MG TAB PO SCH (10:34)
[2020-08-04 13:00] VITALS: BP 125/79
[2020-08-04 17:00] VITALS: BP 141/89
[2020-08-04] MEDS: ATORVASTATIN 20 MG TAB PO SCH (21:04)
[2020-08-04] MEDS: HYDROcodone-ACET 10/325MG TAB PO PRN (21:05)
[2020-08-04 22:00] VITALS: BP 132/74
[2020-08-05] MEDS: IPRATROPIUM BROM 0.5 MG/2.5ML INH SOL NEB SCH ×5 (01:19→23:52)
[2020-08-05 05:00] VITALS: BP 138/85
[2020-08-05] MEDS: FUROSEMIDE 40 MG/4 ML VIAL IV SCH ×2 (05:12→17:44)
[2020-08-05] MEDS: cloNIDine HCL 0.1 MG TAB PO SCH ×3 (05:12→21:51)
[2020-08-05] MEDS: ALBUTEROL SULF 2.5 MG/0.5ML(0.5%) NEB SOLN NEB SCH ×5 (06:09→23:52)
[2020-08-05] MEDS: InsuLIN REG 1unit/0.01ml Soln (100units/ml) SC SCH ×4 (06:13→21:05)
[2020-08-05] MEDS: ACCU-CHEK COMFORT CURVE STRIP VI SCH ×4 (06:13→21:06)
[2020-08-05] MEDS: LEVOTHYROXINE SODIUM 25 MCG TAB PO SCH (08:10)
[2020-08-05 09:00] VITALS: BP 107/62
[2020-08-05] MEDS: PANTOPRAZOLE 40 MG/10 ML VIAL INJ IV SCH (10:15)
[2020-08-05] MEDS: POTASSIUM EFFERVESENT TAB 25 MEQ GT SCH (10:15)
[2020-08-05] MEDS: CLOPIDOGREL BISULFATE 75 MG TAB PO SCH (10:16)
[2020-08-05] MEDS: ASCORBIC ACID 500 MG TAB PO SCH ×2 (10:16→21:51)
[2020-08-05] MEDS: ASPirin 81 mg TAB PO SCH (10:16)
[2020-08-05] MEDS: CHOLECALCIFEROL (VITD3) 1,000UNIT=25mCg TAB PO SCH (10:17)
[2020-08-05] MEDS: amLODIPine BESYLATE 5 MG TAB PO SCH (10:19)
[2020-08-05] MEDS: LISINOPRIL 20 MG TAB PO SCH (10:19)
[2020-08-05 13:00] VITALS: BP 124/77
[2020-08-05] MEDS: SODIUM CHLORIDE 0.9% 1,000 ML IV SCH (14:32)
[2020-08-05 17:00] VITALS: BP 106/73
[2020-08-05 20:53] VITALS: BP 106/73
[2020-08-05] MEDS: ATORVASTATIN 20 MG TAB PO SCH (21:51)
[2020-08-05 22:00] VITALS: BP 146/84
[2020-08-06] MEDS: SODIUM CHLORIDE 0.9% 1,000 ML IV SCH (04:59)
[2020-08-06 05:00] VITALS: BP 157/85
[2020-08-06] MEDS: FUROSEMIDE 40 MG/4 ML VIAL IV SCH ×2 (05:05→17:18)
[2020-08-06] MEDS: cloNIDine HCL 0.1 MG TAB PO SCH ×3 (05:06→22:10)
[2020-08-06] MEDS: ACCU-CHEK COMFORT CURVE STRIP VI SCH ×4 (06:23→22:10)
[2020-08-06] MEDS: InsuLIN REG 1unit/0.01ml Soln (100units/ml) SC SCH ×4 (06:23→22:10)
[2020-08-06] MEDS: hydrALAZINE HCL 20 MG/ML VL IV PRN (06:24)
[2020-08-06] MEDS: ALBUTEROL SULF 2.5 MG/0.5ML(0.5%) NEB SOLN NEB SCH ×3 (06:27→20:11)
[2020-08-06] MEDS: IPRATROPIUM BROM 0.5 MG/2.5ML INH SOL NEB SCH ×3 (06:27→20:11)
[2020-08-06] MEDS: LEVOTHYROXINE SODIUM 25 MCG TAB PO SCH (07:35)
[2020-08-06 08:00] VITALS: BP 132/84
[2020-08-06] MEDS: PANTOPRAZOLE 40 MG/10 ML VIAL INJ IV SCH (09:53)
[2020-08-06] MEDS: POTASSIUM EFFERVESENT TAB 25 MEQ GT SCH (09:53)
[2020-08-06] MEDS: amLODIPine BESYLATE 5 MG TAB PO SCH (09:54)
[2020-08-06] MEDS: ASPirin 81 mg TAB PO SCH (09:54)
[2020-08-06] MEDS: ASCORBIC ACID 500 MG TAB PO SCH ×2 (09:55→22:09)
[2020-08-06] MEDS: CHOLECALCIFEROL (VITD3) 1,000UNIT=25mCg TAB PO SCH (09:55)
[2020-08-06] MEDS: CLOPIDOGREL BISULFATE 75 MG TAB PO SCH (09:55)
[2020-08-06] MEDS: LISINOPRIL 20 MG TAB PO SCH (09:56)
[2020-08-06 12:00] VITALS: BP 142/88
[2020-08-06 16:00] VITALS: BP 154/87
[2020-08-06 22:00] VITALS: BP 132/76
[2020-08-06] MEDS: ATORVASTATIN 20 MG TAB PO SCH (22:09)
[2020-08-07] MEDS: SODIUM CHLORIDE 0.9% 1,000 ML IV SCH ×2 (00:10→16:35)
[2020-08-07 05:00] VITALS: BP 157/87
[2020-08-07] MEDS: cloNIDine HCL 0.1 MG TAB PO SCH ×3 (06:35→22:04)
[2020-08-07] MEDS: FUROSEMIDE 40 MG/4 ML VIAL IV SCH ×2 (06:35→18:17)
[2020-08-07] MEDS: ACCU-CHEK COMFORT CURVE STRIP VI SCH ×4 (06:36→22:04)
[2020-08-07] MEDS: InsuLIN REG 1unit/0.01ml Soln (100units/ml) SC SCH ×4 (06:36→22:06)
[2020-08-07] MEDS: ALBUTEROL SULF 2.5 MG/0.5ML(0.5%) NEB SOLN NEB SCH ×4 (06:54→18:58)
[2020-08-07] MEDS: IPRATROPIUM BROM 0.5 MG/2.5ML INH SOL NEB SCH ×4 (06:54→18:58)
[2020-08-07 08:47] VITALS: BP 130/79
[2020-08-07] MEDS: LEVOTHYROXINE SODIUM 25 MCG TAB PO SCH (08:56)
[2020-08-07] MEDS: POTASSIUM EFFERVESENT TAB 25 MEQ GT SCH (08:56)
[2020-08-07] MEDS: CLOPIDOGREL BISULFATE 75 MG TAB PO SCH (08:57)
[2020-08-07] MEDS: CHOLECALCIFEROL (VITD3) 1,000UNIT=25mCg TAB PO SCH (08:57)
[2020-08-07] MEDS: amLODIPine BESYLATE 5 MG TAB PO SCH (08:57)
[2020-08-07] MEDS: PANTOPRAZOLE 40 MG/10 ML VIAL INJ IV SCH (08:57)
[2020-08-07] MEDS: ASPirin 81 mg TAB PO SCH (08:57)
[2020-08-07] MEDS: LISINOPRIL 20 MG TAB PO SCH (08:58)
[2020-08-07 13:00] VITALS: BP 146/89
[2020-08-07 16:19] VITALS: BP 162/88
[2020-08-07 22:00] VITALS: BP 136/77
[2020-08-08] MEDS: ALBUTEROL SULF 2.5 MG/0.5ML(0.5%) NEB SOLN NEB SCH ×4 (00:11→19:36)
[2020-08-08] MEDS: IPRATROPIUM BROM 0.5 MG/2.5ML INH SOL NEB SCH ×4 (00:11→19:36)
[2020-08-08 05:00] VITALS: BP 112/78
[2020-08-08] MEDS: cloNIDine HCL 0.1 MG TAB PO SCH ×3 (06:00→23:01)
[2020-08-08] MEDS: FUROSEMIDE 40 MG/4 ML VIAL IV SCH ×2 (06:02→17:10)
[2020-08-08] MEDS: ACCU-CHEK COMFORT CURVE STRIP VI SCH ×4 (06:03→22:00)
[2020-08-08] MEDS: InsuLIN REG 1unit/0.01ml Soln (100units/ml) SC SCH ×4 (06:45→23:08)
[2020-08-08] MEDS: SODIUM CHLORIDE 0.9% 1,000 ML IV SCH (09:15)
[2020-08-08] MEDS: POTASSIUM EFFERVESENT TAB 25 MEQ PO SCH (10:22)
[2020-08-08] MEDS: PANTOPRAZOLE 40 MG/10 ML VIAL INJ IV SCH (10:22)
[2020-08-08] MEDS: CHOLECALCIFEROL (VITD3) 1,000UNIT=25mCg TAB PO SCH (10:23)
[2020-08-08] MEDS: CLOPIDOGREL BISULFATE 75 MG TAB PO SCH (10:23)
[2020-08-08] MEDS: amLODIPine BESYLATE 5 MG TAB PO SCH (10:23)
[2020-08-08] MEDS: LISINOPRIL 20 MG TAB PO SCH (10:24)
[2020-08-08 13:00] VITALS: BP 133/68
[2020-08-08 16:56] VITALS: BP 124/76
[2020-08-08 20:00] VITALS: BP 121/74
[2020-08-08 22:00] VITALS: BP 121/74
[2020-08-09] MEDS: SODIUM CHLORIDE 0.9% 1,000 ML IV SCH ×2 (02:06→18:35)
[2020-08-09 05:00] VITALS: BP 154/88
[2020-08-09] MEDS: cloNIDine HCL 0.1 MG TAB PO SCH ×3 (06:16→22:28)
[2020-08-09] MEDS: FUROSEMIDE 40 MG/4 ML VIAL IV SCH ×2 (06:17→18:38)
[2020-08-09] MEDS: ACCU-CHEK COMFORT CURVE STRIP VI SCH ×4 (06:42→22:27)
[2020-08-09] MEDS: InsuLIN REG 1unit/0.01ml Soln (100units/ml) SC SCH ×4 (06:53→22:34)
[2020-08-09 08:56] VITALS: BP 96/68
[2020-08-09] MEDS: PANTOPRAZOLE 40 MG/10 ML VIAL INJ IV SCH (09:54)
[2020-08-09] MEDS: LISINOPRIL 20 MG TAB PO SCH (09:57)
[2020-08-09] MEDS: CLOPIDOGREL BISULFATE 75 MG TAB PO SCH (09:58)
[2020-08-09] MEDS: amLODIPine BESYLATE 5 MG TAB PO SCH (09:58)
[2020-08-09] MEDS: CHOLECALCIFEROL (VITD3) 1,000UNIT=25mCg TAB PO SCH (09:59)
[2020-08-09] MEDS: POTASSIUM EFFERVESENT TAB 25 MEQ PO SCH (10:00)
[2020-08-09 13:00] VITALS: BP 139/74
[2020-08-09 16:50] VITALS: BP 135/71
[2020-08-09 21:39] VITALS: BP 159/90
[2020-08-10 04:25] VITALS: BP 149/89
[2020-08-10] MEDS: FUROSEMIDE 40 MG/4 ML VIAL IV SCH ×2 (06:17→17:03)
[2020-08-10] MEDS: InsuLIN REG 1unit/0.01ml Soln (100units/ml) SC SCH ×4 (06:17→23:27)
[2020-08-10] MEDS: cloNIDine HCL 0.1 MG TAB PO SCH ×2 (06:17→13:03)
[2020-08-10] MEDS: ACCU-CHEK COMFORT CURVE STRIP VI SCH ×4 (06:19→23:21)
[2020-08-10 07:11] LABS: Hematocrit 32.7 % (41.0-53.0); Hemoglobin 11.3 g/dL (13.5-17.5); Mean Corpuscular Hemoglobin 29.6 pg (28.0-32.0); Mean Corpuscular Hgb Conc. 34.5 g/dL (32.0-36.0); Mean Corpuscular Volume 85.8 fL (80.0-100.0); Red Blood Cells 3.81 10^6/uL (4.5-5.90); Red Cell Distribution Width 16.2 % (11.8-14.3); White Blood Cell 8.2 10^3/uL (4.4-10.8)
[2020-08-10 07:26] LABS: Albumin 3.4 g/dL (3.4-5.0); Calcium 9.4 mg/dL (8.5-10.1); Potassium 4.6 mmol/L (3.5-5.1)
[2020-08-10 07:30] LABS: BUN/Creatinine Ratio 32.6; Bilirubin, Total 0.4 mg/dL (0.2-1.0); Total Protein 7.1 g/dL (6.4-8.2)
[2020-08-10 07:34] LABS: Basophils % (manual) 0 (0.0-2.0); Blast Cells 0; Eosinophils % (manual) 0 (0-7); Metamyelocytes % 0; Myelocytes % 0; Promyelocytes % 0; Reactive Lymphocytes 0
[2020-08-10 08:02] LABS: Band Neutrophils % (manual) 4; Lymphocytes % (manual) 26 (10.0-50.0); Monocytes % (manual) 9 (0-12)
[2020-08-10] MEDS: PANTOPRAZOLE 40 MG/10 ML VIAL INJ IV SCH (08:56)
[2020-08-10] MEDS: POTASSIUM EFFERVESENT TAB 25 MEQ PO SCH (08:56)
[2020-08-10] MEDS: amLODIPine BESYLATE 5 MG TAB PO SCH (08:56)
[2020-08-10] MEDS: CLOPIDOGREL BISULFATE 75 MG TAB PO SCH (08:57)
[2020-08-10] MEDS: CHOLECALCIFEROL (VITD3) 1,000UNIT=25mCg TAB PO SCH (08:58)
[2020-08-10] MEDS: LISINOPRIL 20 MG TAB PO SCH (08:58)
[2020-08-10 09:00] VITALS: BP 121/54
[2020-08-10] MEDS: SODIUM CHLORIDE 0.9% 1,000 ML IV SCH (11:10)
[2020-08-10 13:00] VITALS: BP 150/84
[2020-08-10 16:16] VITALS: BP 159/86
[2020-08-10] MEDS: hydrALAZINE HCL 20 MG/ML VL IV PRN (17:03)
[2020-08-10 22:46] VITALS: BP 74/45
[2020-08-11 05:24] VITALS: BP 112/68
[2020-08-11] MEDS: ACCU-CHEK COMFORT CURVE STRIP VI SCH ×4 (06:19→21:48)
[2020-08-11] MEDS: FUROSEMIDE 40 MG/4 ML VIAL IV SCH (06:19)
[2020-08-11] MEDS: InsuLIN REG 1unit/0.01ml Soln (100units/ml) SC SCH ×4 (07:14→21:46)
[2020-08-11 09:00] VITALS: BP 139/76
[2020-08-11] MEDS: CLOPIDOGREL BISULFATE 75 MG TAB PO SCH (09:55)
[2020-08-11] MEDS: LISINOPRIL 20 MG TAB PO SCH (09:55)
[2020-08-11] MEDS: PANTOPRAZOLE 40 MG/10 ML VIAL INJ IV SCH (09:55)
[2020-08-11] MEDS: POTASSIUM EFFERVESENT TAB 25 MEQ PO SCH ×3 (09:55→21:58)
[2020-08-11] MEDS: CHOLECALCIFEROL (VITD3) 1,000UNIT=25mCg TAB PO SCH (09:55)
[2020-08-11 13:00] VITALS: BP 146/84
[2020-08-11 16:44] VITALS: BP 146/80
[2020-08-11] MEDS: FUROSEMIDE 40 MG TAB PO SCH (18:10)
[2020-08-11 22:22] VITALS: BP 129/97
[2020-08-12 05:00] VITALS: BP 136/96
[2020-08-12] MEDS: FUROSEMIDE 40 MG TAB PO SCH ×2 (06:18→17:13)
[2020-08-12] MEDS: InsuLIN REG 1unit/0.01ml Soln (100units/ml) SC SCH ×4 (06:27→22:01)
[2020-08-12] MEDS: ACCU-CHEK COMFORT CURVE STRIP VI SCH ×4 (06:36→22:04)
[2020-08-12] MEDS: CLOPIDOGREL BISULFATE 75 MG TAB PO SCH (08:24)
[2020-08-12] MEDS: LISINOPRIL 20 MG TAB PO SCH (08:25)
[2020-08-12] MEDS: POTASSIUM EFFERVESENT TAB 25 MEQ PO SCH ×2 (08:26→22:03)
[2020-08-12 09:00] VITALS: BP 162/90
[2020-08-12 13:00] VITALS: BP 130/92
[2020-08-12 16:26] VITALS: BP 153/90
[2020-08-12 22:00] VITALS: BP 146/91
[2020-08-13 05:00] VITALS: BP 146/96
[2020-08-13] MEDS: FUROSEMIDE 40 MG TAB PO SCH ×2 (06:42→18:01)
[2020-08-13] MEDS: InsuLIN REG 1unit/0.01ml Soln (100units/ml) SC SCH ×4 (06:54→22:16)
[2020-08-13] MEDS: ACCU-CHEK COMFORT CURVE STRIP VI SCH ×4 (07:00→22:15)
[2020-08-13 08:49] VITALS: BP 150/97
[2020-08-13] MEDS: POTASSIUM EFFERVESENT TAB 25 MEQ PO SCH ×2 (11:03→22:17)
[2020-08-13] MEDS: CLOPIDOGREL BISULFATE 75 MG TAB PO SCH (11:03)
[2020-08-13] MEDS: METOPROLOL SUCCINATE XL 50 MG TAB PO SCH (11:04)
[2020-08-13] MEDS: LISINOPRIL 20 MG TAB PO SCH (11:05)
[2020-08-13] MEDS: hydrALAZINE HCL 20 MG/ML VL IV PRN (12:11)
[2020-08-13 12:45] VITALS: BP 162/104
[2020-08-13 16:45] VITALS: BP 126/88
[2020-08-13 22:00] VITALS: BP 125/82
[2020-08-14 05:00] VITALS: BP 155/95
[2020-08-14] MEDS: ACCU-CHEK COMFORT CURVE STRIP VI SCH ×4 (06:23→22:33)
[2020-08-14] MEDS: FUROSEMIDE 40 MG TAB PO SCH (06:27)
[2020-08-14] MEDS: InsuLIN REG 1unit/0.01ml Soln (100units/ml) SC SCH ×4 (06:27→22:41)
[2020-08-14 09:09] VITALS: BP 138/105
[2020-08-14] MEDS: CLOPIDOGREL BISULFATE 75 MG TAB PO SCH (10:56)
[2020-08-14] MEDS: LISINOPRIL 20 MG TAB PO SCH (10:57)
[2020-08-14] MEDS: METOPROLOL SUCCINATE XL 50 MG TAB PO SCH (10:57)
[2020-08-14] MEDS: POTASSIUM EFFERVESENT TAB 25 MEQ PO SCH (11:02)
[2020-08-14] MEDS ORDERED: POTASSIUM EFFERVESENT TAB 25 MEQ PO SCH (11:45)
[2020-08-14] MEDS: FUROSEMIDE 20 MG TAB PO SCH ×2 (12:20→17:44)
[2020-08-14 12:35] VITALS: BP 142/91
[2020-08-14 16:16] VITALS: BP 152/98
[2020-08-14 22:00] VITALS: BP 145/87
[2020-08-15 05:00] VITALS: BP 122/70
[2020-08-15] MEDS: FUROSEMIDE 20 MG TAB PO SCH ×2 (05:22→18:07)
[2020-08-15] MEDS: ACCU-CHEK COMFORT CURVE STRIP VI SCH ×4 (06:04→21:30)
[2020-08-15] MEDS: InsuLIN REG 1unit/0.01ml Soln (100units/ml) SC SCH ×4 (06:15→21:32)
[2020-08-15 06:46] LABS: Calcium 9.7 mg/dL (8.5-10.1)
[2020-08-15 06:48] LABS: BUN/Creatinine Ratio 31.7
[2020-08-15 06:51] LABS: Potassium 5.9 mmol/L (3.5-5.1)
[2020-08-15 08:35] VITALS: BP 110/80
[2020-08-15] MEDS: CLOPIDOGREL BISULFATE 75 MG TAB PO SCH (11:00)
[2020-08-15] MEDS: LISINOPRIL 20 MG TAB PO SCH (11:01)
[2020-08-15] MEDS: METOPROLOL SUCCINATE XL 50 MG TAB PO SCH (11:01)
[2020-08-15] MEDS ORDERED: SODIUM ZIRCONIUM CYCL 10 GM PAK PO ONE ×2 (12:15→12:45)
[2020-08-15] MEDS ORDERED: METOPROLOL SUCCINATE XL 50 MG TAB PO ONE (12:30)
[2020-08-15 12:31] VITALS: BP 131/89
[2020-08-15 16:29] VITALS: BP 142/96
[2020-08-15 22:00] VITALS: BP 123/81
[2020-08-16 05:24] VITALS: BP 14/92
[2020-08-16] MEDS: FUROSEMIDE 20 MG TAB PO SCH ×2 (06:03→18:00)
[2020-08-16] MEDS: ACCU-CHEK COMFORT CURVE STRIP VI SCH ×4 (06:03→21:34)
[2020-08-16] MEDS: InsuLIN REG 1unit/0.01ml Soln (100units/ml) SC SCH ×4 (06:30→21:40)
[2020-08-16 07:05] LABS: BUN/Creatinine Ratio 37.7; Calcium 9.7 mg/dL (8.5-10.1); Potassium 5.3 mmol/L (3.5-5.1)
[2020-08-16 08:35] VITALS: BP 146/95
[2020-08-16] MEDS: METOPROLOL SUCCINATE XL 50 MG TAB PO SCH (10:00)
[2020-08-16] MEDS: CLOPIDOGREL BISULFATE 75 MG TAB PO SCH (10:29)
[2020-08-16] MEDS: LISINOPRIL 20 MG TAB PO SCH (10:31)
[2020-08-16 12:37] VITALS: BP 121/88
[2020-08-16] MEDS: HYDROcodone-ACET 10/325MG TAB PO PRN ×3 (14:19→22:38)
[2020-08-16 16:41] VITALS: BP 128/82
[2020-08-16 21:54] VITALS: BP 109/70
[2020-08-17 05:00] VITALS: BP 121/74
[2020-08-17] MEDS: ACCU-CHEK COMFORT CURVE STRIP VI SCH ×4 (06:20→21:19)
[2020-08-17] MEDS: FUROSEMIDE 20 MG TAB PO SCH ×2 (06:20→17:16)
[2020-08-17] MEDS: InsuLIN REG 1unit/0.01ml Soln (100units/ml) SC SCH ×4 (06:29→21:21)
[2020-08-17 09:00] VITALS: BP 132/92
[2020-08-17] MEDS: CLOPIDOGREL BISULFATE 75 MG TAB PO SCH (09:49)
[2020-08-17] MEDS: METOPROLOL SUCCINATE XL 50 MG TAB PO SCH (09:50)
[2020-08-17 13:00] VITALS: BP 111/69
[2020-08-17] MEDS: LISINOPRIL 20 MG TAB PO SCH (15:05)
[2020-08-17] MEDS: HYDROcodone-ACET 10/325MG TAB PO PRN (16:29)
[2020-08-17 17:00] VITALS: BP 134/62
[2020-08-17 21:51] VITALS: BP 120/77
[2020-08-18 05:00] VITALS: BP 152/96
[2020-08-18 05:28] LABS: BUN/Creatinine Ratio 40.7; Calcium 9.2 mg/dL (8.5-10.1)
[2020-08-18] MEDS: FUROSEMIDE 20 MG TAB PO SCH ×2 (05:31→17:13)
[2020-08-18 06:17] LABS: Potassium 5.7 mmol/L (3.5-5.1)
[2020-08-18] MEDS ORDERED: SODIPOW32 OR (06:49)
[2020-08-18] MEDS: ACCU-CHEK COMFORT CURVE STRIP VI SCH ×4 (06:56→22:17)
[2020-08-18] MEDS: InsuLIN REG 1unit/0.01ml Soln (100units/ml) SC SCH ×4 (06:56→22:00)
[2020-08-18] MEDS: SODIUM POLYSTYRENE SULF 15GM/60ml SUSP or POWDER PO SCH ×2 (07:45→08:45)
[2020-08-18] MEDS: LISINOPRIL 20 MG TAB PO SCH (08:53)
[2020-08-18] MEDS: CLOPIDOGREL BISULFATE 75 MG TAB PO SCH (08:54)
[2020-08-18] MEDS: METOPROLOL SUCCINATE XL 50 MG TAB PO SCH (08:54)
[2020-08-18 09:00] VITALS: BP 163/96
[2020-08-18] MEDS ORDERED: PATIENTS OWN MEDICATION PO SCH (10:00)
[2020-08-18] MEDS: HYDROcodone-ACET 10/325MG TAB PO PRN ×3 (10:05→20:07)
[2020-08-18] MEDS ORDERED: SODIUM ZIRCONIUM CYCL 10 GM PAK PO ONE (11:30)
[2020-08-18 13:00] VITALS: BP 125/79
[2020-08-18] MEDS: SODIUM ZIRCONIUM CYCL 10 GM PAK PO SCH ×2 (15:02→22:16)
[2020-08-18 17:00] VITALS: BP 146/87
[2020-08-18] MEDS ORDERED: amLODIPine BESYLATE 5 MG TAB PO SCH (21:00)
[2020-08-18 21:52] VITALS: BP 143/87
[2020-08-19 05:00] VITALS: BP 105/67
[2020-08-19] MEDS: SODIUM ZIRCONIUM CYCL 10 GM PAK PO SCH ×2 (05:57→14:42)
[2020-08-19] MEDS: ACCU-CHEK COMFORT CURVE STRIP VI SCH ×4 (05:57→21:10)
[2020-08-19] MEDS: InsuLIN REG 1unit/0.01ml Soln (100units/ml) SC SCH ×5 (05:58→21:11)
[2020-08-19 07:15] LABS: Potassium 4.7 mmol/L (3.5-5.1)
[2020-08-19 07:19] LABS: BUN/Creatinine Ratio 45.1; Calcium 9.2 mg/dL (8.5-10.1)
[2020-08-19 09:42] VITALS: BP 150/90
[2020-08-19] MEDS: CLOPIDOGREL BISULFATE 75 MG TAB PO SCH (10:30)
[2020-08-19] MEDS: METOPROLOL SUCCINATE XL 50 MG TAB PO SCH (10:32)
[2020-08-19 12:54] VITALS: BP 133/93
[2020-08-19 16:50] VITALS: BP 126/78
[2020-08-19] MEDS: HYDROcodone-ACET 10/325MG TAB PO PRN (21:13)
[2020-08-19 22:00] VITALS: BP 122/74
[2020-08-20 05:00] VITALS: BP 130/81
[2020-08-20] MEDS: ACCU-CHEK COMFORT CURVE STRIP VI SCH ×4 (06:13→21:57)
[2020-08-20] MEDS: InsuLIN REG 1unit/0.01ml Soln (100units/ml) SC SCH ×4 (06:13→21:59)
[2020-08-20 09:00] VITALS: BP 145/80
[2020-08-20] MEDS: HYDROcodone-ACET 10/325MG TAB PO PRN (09:09)
[2020-08-20] MEDS: METOPROLOL SUCCINATE XL 50 MG TAB PO SCH (09:10)
[2020-08-20] MEDS: CLOPIDOGREL BISULFATE 75 MG TAB PO SCH (09:10)
[2020-08-20 13:00] VITALS: BP 135/77
[2020-08-20 17:00] VITALS: BP 134/85
[2020-08-20 22:00] VITALS: BP 115/70
[2020-08-21 05:00] VITALS: BP 112/74
[2020-08-21] MEDS: InsuLIN REG 1unit/0.01ml Soln (100units/ml) SC SCH ×4 (06:11→22:43)
[2020-08-21] MEDS: ACCU-CHEK COMFORT CURVE STRIP VI SCH ×4 (06:11→22:37)
[2020-08-21 08:38] LABS: Calcium 9.4 mg/dL (8.5-10.1)
[2020-08-21 08:39] LABS: BUN/Creatinine Ratio 45.9
[2020-08-21 09:00] VITALS: BP 158/89
[2020-08-21 09:04] VITALS: BP 110/70
[2020-08-21] MEDS: CLOPIDOGREL BISULFATE 75 MG TAB PO SCH (09:29)
[2020-08-21] MEDS: METOPROLOL SUCCINATE XL 50 MG TAB PO SCH (09:29)
[2020-08-21 13:00] VITALS: BP 120/83
[2020-08-21 16:45] VITALS: BP 131/84
[2020-08-21] MEDS: HYDROcodone-ACET 10/325MG TAB PO PRN (20:01)
[2020-08-21 22:05] VITALS: BP 117/75
[2020-08-22 04:55] VITALS: BP 146/89
[2020-08-22] MEDS: ACCU-CHEK COMFORT CURVE STRIP VI SCH ×4 (06:22→21:55)
[2020-08-22] MEDS: InsuLIN REG 1unit/0.01ml Soln (100units/ml) SC SCH ×4 (06:22→22:15)
[2020-08-22 08:05] LABS: BUN/Creatinine Ratio 45.9; Calcium 9.4 mg/dL (8.5-10.1); Potassium 5.1 mmol/L (3.5-5.1)
[2020-08-22 09:00] VITALS: BP 119/82
[2020-08-22] MEDS: CLOPIDOGREL BISULFATE 75 MG TAB PO SCH (10:04)
[2020-08-22] MEDS: METOPROLOL SUCCINATE XL 50 MG TAB PO SCH (10:04)
[2020-08-22 13:00] VITALS: BP 136/90
[2020-08-22 16:51] VITALS: BP 164/93
[2020-08-22] MEDS: HYDROcodone-ACET 10/325MG TAB PO PRN (21:56)
[2020-08-22] MEDS: hydrALAZINE HCL 20 MG/ML VL IV PRN (21:56)
[2020-08-22 22:00] VITALS: BP 161/99
[2020-08-23 05:00] VITALS: BP 118/86
[2020-08-23 06:32] LABS: Calcium 9.3 mg/dL (8.5-10.1); Potassium 4.7 mmol/L (3.5-5.1)
[2020-08-23] MEDS: ACCU-CHEK COMFORT CURVE STRIP VI SCH ×4 (06:32→20:49)
[2020-08-23] MEDS: InsuLIN REG 1unit/0.01ml Soln (100units/ml) SC SCH ×4 (06:33→20:51)
[2020-08-23 06:35] LABS: BUN/Creatinine Ratio 38.2
[2020-08-23 09:00] VITALS: BP_SYST 130; BP_SYST 138; BP_DIAS 66; BP_DIAS 94
[2020-08-23] MEDS: METOPROLOL SUCCINATE XL 50 MG TAB PO SCH (09:40)
[2020-08-23] MEDS: CLOPIDOGREL BISULFATE 75 MG TAB PO SCH (09:41)
[2020-08-23 13:00] VITALS: BP 148/92
[2020-08-23 17:00] VITALS: BP 138/81
[2020-08-23 22:15] VITALS: BP 155/89
[2020-08-24 05:13] VITALS: BP 146/87
[2020-08-24] MEDS: ACCU-CHEK COMFORT CURVE STRIP VI SCH ×3 (05:18→17:00)
[2020-08-24] MEDS: InsuLIN REG 1unit/0.01ml Soln (100units/ml) SC SCH ×3 (05:18→17:00)
[2020-08-24 09:00] VITALS: BP 144/90
[2020-08-24] MEDS: CLOPIDOGREL BISULFATE 75 MG TAB PO SCH (09:27)
[2020-08-24] MEDS: METOPROLOL SUCCINATE XL 50 MG TAB PO SCH (09:28)
[2020-08-24 13:00] VITALS: BP 147/83
[2020-08-24] MEDS ORDERED: METO-6 PO (15:01)
[2020-08-24] MEDS ORDERED: CLOP75TA28 PO (15:01)
[2020-08-24] MEDS ORDERED: AML5T PO (15:01)
[2020-08-24 15:41] VITALS: BP 147/83
== END 2020-08-24 16:44 | DRG 207 ==
LOC: ER 11:25 → EDBD 11:25 → EEVIPCON 11:25 → OVERFLOW 13:36 → EAST 15:52 → DOU IN ICU 07-09 13:00 → TELE-WESTW 07-21 06:02
PROVIDERS: ADMIT Internal Medicine; ATTEND Internal Medicine
PROC: 5A1955Z Respiratory Ventilation, Greater than 96 Consecutive Hours (ICD-10-PCS; 2020-07-09)
PROC: B548ZZA Ultrasonography of Superior Vena Cava, Guidance (ICD-10-PCS; 2020-07-09)
PROC: 0B9D8ZX Drainage of Right Middle Lung Lobe, Via Natural or Artificial Opening Endoscopic, Diagnostic (ICD-10-PCS; 2020-07-09)
PROC: 0BH17EZ Insertion of Endotracheal Airway into Trachea, Via Natural or Artificial Opening (ICD-10-PCS; 2020-07-09)
PROC: 02HV33Z Insertion of Infusion Device into Superior Vena Cava, Percutaneous Approach (ICD-10-PCS; principal; 2020-07-09 14:30)
PROC: 30233N1 Transfusion of Nonautologous Red Blood Cells into Peripheral Vein, Percutaneous Approach (ICD-10-PCS; 2020-07-25)
DX: J18.9 Pneumonia, unspecified organism (principal); R65.21 Severe sepsis with septic shock; A41.9 Sepsis, unspecified organism; I63.9 Cerebral infarction, unspecified; J80 Acute respiratory distress syndrome; N17.9 Acute kidney failure, unspecified; E44.0 Moderate protein-calorie malnutrition; E87.1 Hypo-osmolality and hyponatremia; H33.22 Serous retinal detachment, left eye; I13.0 Hypertensive heart and chronic kidney disease with heart failure and stage 1 through stage 4 chronic kidney disease, or unspecified chronic kidney disease; J98.11 Atelectasis; J91.8 Pleural effusion in other conditions classified elsewhere; I50.9 Heart failure, unspecified; E87.5 Hyperkalemia; E78.5 Hyperlipidemia, unspecified; D64.9 Anemia, unspecified; E11.22 Type 2 diabetes mellitus with diabetic chronic kidney disease; E11.649 Type 2 diabetes mellitus with hypoglycemia without coma; E86.0 Dehydration; I50.810 Right heart failure, unspecified; N18.2 Chronic kidney disease, stage 2 (mild); Z79.4 Long term (current) use of insulin; Z83.3 Family history of diabetes mellitus; Z86.73 Personal history of transient ischemic attack (TIA), and cerebral infarction without residual deficits; Z79.899 Other long term (current) drug therapy; E55.9 Vitamin D deficiency, unspecified; Z20.822 Contact with and (suspected) exposure to COVID-19
CPT/HCPCS: 36415; 36600; 70450; 70551; 71045; 71250; 76775; 80048; 80053; 80202; 81001; 82306; 82570; 82728; 82805; 82962; 83516; 83605; 83735; 83880; 84100; 84132; 84300; 84443; 84484; 85007; 85014; 85018; 85025; 85027; 85379; 85610; 86141; 86225; 86235; 86431; 86850; 86900; 86901; 86920; 87040; 87070; 87081; 87205; 87426; 92610; 93005; 93306; 94002; 94003; 94640; 96365; 96366; 96375; 97116; 97163; 97530; C9113; G0378; J0171; J0330; J0696; J1100; J1815; J2185; J2250; J2543; J2704; J3490; J7060; P9047

== ENCOUNTER 2020-08-29 12:19 | Inpatient (IN) | payer OTHER ==
[~2020-08-29] VITALS: Ht 157.5 cm; Wt 64.0 kg
[~2020-08-29 12:19] MED LIST changes: +AML5T PO; +CLOP75TA28 PO; +METO-6 PO; +SODIPOW32 OR
[2020-08-29] MEDS ORDERED: SODIUM CHLORIDE 0.9% 500 ML IV ONE (12:45)
[2020-08-29 13:22] LABS: Basophils # (auto) 0.1 10 ^3/uL (0-0.2); Basophils % (auto) 1.2 % (0.0-2.0); Eosinophils # (auto) 0.9 10 ^3/uL (0-0.8); Eosinophils % (auto) 9.8 % (0.0-7.0); Hematocrit 32.4 % (41.0-53.0); Hemoglobin 11.4 g/dL (13.5-17.5); Lymphocytes # (auto) 1.6 10 ^3/uL (0.4-5.4); Lymphocytes % (auto) 18.6 % (10.0-50.0); Mean Corpuscular Hemoglobin 29.8 pg (28.0-32.0); Monocytes # (auto) 0.4 10 ^3/uL (0-1.3); Monocytes % (auto) 4.5 % (0.0-12.0); Neutrophils # (auto) 5.8 10 ^3/uL (1.6-8.6); Neutrophils % (auto) 65.9 % (37.0-80.0); Nucleated Red Blood Cells % 0.1 %; Platelet Count (auto) 272 10^3/uL (140-450); Red Blood Cells 3.81 10^6/uL (4.5-5.90); Red Cell Distribution Width 15.6 % (11.8-14.3); White Blood Cell 8.8 10^3/uL (4.4-10.8)
[2020-08-29 13:40] LABS: Albumin 3.5 g/dL (3.4-5.0); Anion Gap 7 (5-15); Blood Urea Nitrogen 34 mg/dL (7-18); Carbon Dioxide 23 mmol/L (21-32); Chloride 100 mmol/L (98-107); Glucose 230 mg/dL (74-106); Magnesium 2.1 mg/dL (1.6-2.6); Sodium 130 mmol/L (136-145)
[2020-08-29 13:45] LABS: Alanine Aminotransferase 28 U/L (16-61); Alkaline Phosphatase 114 U/L (45-117); Aspartate Aminotransferase 22 U/L (15-37); BUN/Creatinine Ratio 29.6; Bilirubin, Total 0.3 mg/dL (0.2-1.0); GFR African American 88 mL/min; GFR Non-African American 73 mL/min; Total Protein 7.3 g/dL (6.4-8.2)
[2020-08-29 13:49] LABS: Potassium 5.7 mmol/L (3.5-5.1)
[2020-08-29] MEDS ORDERED: SODIUM BICARBONATE 8.4 % INJ 50ML VIAL IV ONE (14:15)
[2020-08-29] MEDS ORDERED: CALCIUM GLUC 1,000mg/50ml-NS 50 ML IV ONE (14:15)
[2020-08-29] MEDS ORDERED: DEXTROSE (50%) 50ML SYRG IV PRN (15:30)
[2020-08-29] MEDS ORDERED: MORPHINE SULF INJ 2 MG/ML SYRINGE 1ML IV PRN (15:30)
[2020-08-29] MEDS ORDERED: NITROGLYCERIN 0.4 MG SL TAB SL PRN (15:30)
[2020-08-29] MEDS: HYDROcodone-ACET 10/325MG TAB PO PRN (15:53)
[2020-08-29] MEDS: SOD CHL 0.45% 1,000 ML IV SCH ×3 (15:54→18:55)
[2020-08-29] MEDS: InsuLIN REG 1unit/0.01ml Soln (100units/ml) SC SCH (17:00)
[2020-08-29] MEDS: glipiZIDE 5 MG TAB PO SCH (18:00)
[2020-08-29] MEDS: metFORMIN HYDROCHLORIDE 500 MG TAB PO SCH (18:00)
[2020-08-29] MEDS: ACCU-CHEK COMFORT CURVE STRIP VI SCH ×2 (18:55→22:00)
[2020-08-29 20:00] VITALS: BP 131/74
[2020-08-29 22:00] VITALS: BP 131/74
[2020-08-29] MEDS ORDERED: ATORVASTATIN 20 MG TAB PO SCH (22:00)
[2020-08-29] MEDS ORDERED: InsuLIN REG 1unit/0.01ml Soln (100units/ml) SC SCH (22:00)
[2020-08-29 22:38] VITALS: BP 131/74
[2020-08-30] MEDS ORDERED: LEV50T PO (00:11)
[2020-08-30] MEDS ORDERED: METF-370 PO (00:11)
[2020-08-30] MEDS: HYDROcodone-ACET 10/325MG TAB PO PRN (04:40)
[2020-08-30] MEDS: SOD CHL 0.45% 1,000 ML IV SCH ×3 (04:49→17:59)
[2020-08-30 05:00] VITALS: BP 121/76
[2020-08-30 05:39] LABS: Urine Bacteria FEW /hpf (None Seen); Urine Blood Negative /uL (Negative); Urine Hyaline Cast FEW /lpf (0 - 2); Urine Mucus FEW (None Seen); Urine Specific Gravity 1.009 (1.001-1.035); Urine WBC 1 /hpf (0 - 3)
[2020-08-30 06:36] LABS: Anion Gap 5 (5-15); Blood Urea Nitrogen 32 mg/dL (7-18); Calcium 8.8 mg/dL (8.5-10.1); Carbon Dioxide 23 mmol/L (21-32); Chloride 107 mmol/L (98-107); Glucose 82 mg/dL (74-106); Potassium 4.8 mmol/L (3.5-5.1); Sodium 135 mmol/L (136-145)
[2020-08-30] MEDS: glipiZIDE 5 MG TAB PO SCH ×2 (06:38→17:59)
[2020-08-30] MEDS: InsuLIN REG 1unit/0.01ml Soln (100units/ml) SC SCH ×3 (06:39→18:03)
[2020-08-30] MEDS: ACCU-CHEK COMFORT CURVE STRIP VI SCH ×3 (06:40→17:59)
[2020-08-30 06:42] LABS: BUN/Creatinine Ratio 34.8; GFR African American 114 mL/min; GFR Non-African American 94 mL/min
[2020-08-30] MEDS ORDERED: LEVOTHYROXINE SODIUM 25 MCG TAB PO SCH (07:00)
[2020-08-30 08:40] VITALS: BP 111/72
[2020-08-30] MEDS ORDERED: LISINOPRIL 10 MG TAB PO SCH (10:00)
[2020-08-30] MEDS ORDERED: CLOPIDOGREL BISULFATE 75 MG TAB PO SCH (10:00)
[2020-08-30] MEDS ORDERED: amLODIPine BESYLATE 5 MG TAB PO SCH ×2 (10:00)
[2020-08-30] MEDS ORDERED: METOPROLOL SUCCINATE XL 50 MG TAB PO SCH (10:00)
[2020-08-30] MEDS ORDERED: ASPirin-EC 81 mg tab PO SCH (10:00)
[2020-08-30] MEDS: metFORMIN HYDROCHLORIDE 500 MG TAB PO SCH ×2 (10:33→17:59)
[2020-08-30 12:30] VITALS: BP 156/93
[2020-08-30 16:40] VITALS: BP 121/73
[2020-08-30 18:12] VITALS: BP 121/73
== END 2020-08-30 19:08 | DRG 312 ==
LOC: ER 12:19 → EEVIPCON 12:19 → TELE 15:18 → TELE-WESTW 18:33
PROVIDERS: ADMIT Internal Medicine; ATTEND Internal Medicine
DX: R55 Syncope and collapse (principal); E87.1 Hypo-osmolality and hyponatremia; E87.5 Hyperkalemia; Z20.822 Contact with and (suspected) exposure to COVID-19; E11.65 Type 2 diabetes mellitus with hyperglycemia; W18.2XXA Fall in (into) shower or empty bathtub, initial encounter; S09.90XA Unspecified injury of head, initial encounter; I67.2 Cerebral atherosclerosis; I11.0 Hypertensive heart disease with heart failure; I50.9 Heart failure, unspecified; M25.78 Osteophyte, vertebrae; Z86.16 Personal history of COVID-19; Z87.01 Personal history of pneumonia (recurrent); Y93.E1 Activity, personal bathing and showering; Y92.89 Other specified places as the place of occurrence of the external cause; Y99.8 Other external cause status; Z83.3 Family history of diabetes mellitus; Z86.73 Personal history of transient ischemic attack (TIA), and cerebral infarction without residual deficits; Z79.899 Other long term (current) drug therapy; E78.5 Hyperlipidemia, unspecified
CPT/HCPCS: 36415; 70450; 71045; 72131; 80048; 80053; 81001; 82728; 82962; 83735; 83880; 84443; 84484; 85025; 85379; 86141; 87081; 87426; 93005; 96361; 96365; 96375; 99291; G0378; J1815